=== PATIENT | female | born 2000 | race Caucasian/White ===

== ENCOUNTER 2020-06-19 22:36 | Emergency (ER) | payer OTHER, SELFPAY ==
[2020-06-19 22:41] VITALS: BP 128/79; PULSE 103; RESP 17; TEMP 36.1; O2SAT 99
--- NOTE | 2020-06-19 23:52 | ED.PREGNANCY ---
HPI - General Chief complaint: Vaginal Bleeding Stated complaint: vaginal bleed Time Seen by Provider: 06/19/20 23:32 Source: patient Mode of arrival: ambulatory Limitations: no limitations History of Present Illness HPI Narrative: This patient is a 20 year old female approximately 16 weeks GA who presents for evaluation vaginal bleeding. She reports she had an ultrasound performed 2- 3 weeks ago that reports she was 13 weeks with IUP. She come to ER because prior to arrival she saw some blood when she was using the restroom. She also reported mild lower abdominal cramping. She states she used the restroom here and did not see any more bleeding. She denies fever, chills, diarrhea or urinary symptoms. She does reports nausea and vomiting from morning sickness. She states she will be receiving her care from [facility] Related Data Allergies Allergy/AdvReac Type Severity Reaction Status Date / Time lavender (Lavandula Allergy Severe Other Verified 03/29/19 15:40 angustifolia) Review of Systems Review of Systems: All systems reviewed & are unremarkable except as noted in HPI and below PMFSH Past Medical History Medical History (Updated 06/20/20 @ 02:15 by Bree Luque MD) Patient denies medical problems Surgical History Surgical History (Updated 06/20/20 @ 02:13 by Bree Luque MD) H/O neck surgery Social History Social History (Updated 06/20/20 @ 02:13 by Bree Luque MD) Smoking status: Never smoker Gender identity (if verbalized by the patient): Female Exam Const: General: no acute distress and alert Orientation/consciousness: patient oriented x3 HENMT: Head: atraumatic Face and sinus: face symmetric Throat: posterior oropharynx normal, tonsils normal and uvula midline Eyes: EOM: EOMs intact bilaterally Chest: Chest palpation & inspection: normal inspection of the chest Resp: Effort & Inspection: normal respiratory effort and no retractions Auscultation: clear to auscultation bilaterally Cardio: Rate: regular rate Rhythm: regular rhythm Heart sounds: no murmurs GI: GI Palp: Yes Soft to palpation, No Tenderness to palpation present (GI), No Guarding due to palpation present (GI) and No Rigid due to palpation Auscultation: normal bowel sounds Skin: General skin exam: normal color Rashes: no rashes Neuro: General: patient oriented x3 and moves all extremities Course Reevaluation(s) Reevaluation #1: I performed a bedside ultrasound that shows good movement and Good heart rate at 158. Date: 06/20/20 Time: 02:14 Vital Signs Vital signs: Vital Signs Temperature 97.0 F L 06/19/20 22:41 Pulse Rate 103 H 06/19/20 22:41 Respiratory Rate 17 06/19/20 22:41 Blood Pressure 128/79 06/19/20 22:41 Pulse Oximetry 99 06/19/20 22:41 Temperature 98.2 F 06/20/20 02:29 Pulse Rate 78 06/20/20 02:29 Respiratory Rate 16 06/20/20 02:29 Blood Pressure 130/86 06/20/20 02:29 Pulse Oximetry 100 06/20/20 02:29 MDM - OB/Uterine Contractions Lab Data Attestation: I reviewed the patient's lab results. Result diagrams: 06/20/20 00:11 Labs: Lab Results 06/20/20 06/20/20 06/20/20 Range/Units 00:10 00:11 01:56 WBC 13.8 H (4.5-10.0) K/mm3 RBC 4.29 (4.2-5.4) M/mm3 Hgb 13.1 (12.0-15.0) g/dL Hct 38.9 (37.0-47.0) % MCV 90.7 (80-100) fl MCH 30.5 (26-34) pg MCHC 33.7 (32-36) g/dl RDW 13.4 (11.5-14.5) % Plt Count 262 (150-375) k/mm3 MPV 10.6 H (7.4-10.4) fl Immature Gran % (Auto) 0.5 (0-0.5) % Neut % (Auto) 73.2 H (45.5-73.1) % Lymph % (Auto) 20.3 (18.3-44.2) % Love % (Auto) 4.7 (2.6-8.5) % Eos % (Auto) 0.9 (0-4.4) % Baso % (Auto) 0.4 (0.2-1.2) % Lymph # (Auto) 2.80 (0.9-3.2) K/mm3 Love # (Auto) 0.7 H (0.1-0.6) K/mm3 Eos # (Auto) 0.1 (0-0.3) K/mm3 Baso # (Auto) 0.1
[2020-06-20 00:28] LABS: Basophils Absolute Auto 0.1 K/mm3 (0.0-0.1); Basophils Percent Auto 0.4 % (0.2-1.2); Eosinophils Absolute Auto 0.1 K/mm3 (0-0.3); Eosinophils Percent Auto 0.9 % (0-4.4); Hematocrit 38.9 % (37.0-47.0); Hemoglobin 13.1 g/dL (12.0-15.0); Immature Granulocyte Absolute 0.07 K/mm3 (0.00-0.031); Immature Granulocyte Percent A 0.5 % (0-0.5); Lymphocytes Percent Auto 20.3 % (18.3-44.2); Mean Corpuscular HGB Conc 33.7 g/dl (32-36); Mean Corpuscular Hemoglobin 30.5 pg (26-34); Mean Corpuscular Volume 90.7 fl (80-100); Mean Platelet Volume 10.6 fl (7.4-10.4); Monocytes Absolute Auto 0.7 K/mm3 (0.1-0.6); Monocytes Percent Auto 4.7 % (2.6-8.5); Neutrophils Absolute Auto 10.1 K/mm3 (1.3-6.7); Neutrophils Percent Auto 73.2 % (45.5-73.1); Platelet Count Result 262 k/mm3 (150-375); Red Blood Count 4.29 M/mm3 (4.2-5.4); Red Cell Distribution Width 13.4 % (11.5-14.5); White Blood Count 13.8 K/mm3 (4.5-10.0)
[2020-06-20 01:06] VITALS: BP 132/70; BP 139/68; BP 144/77; PULSE 78; PULSE 80
[2020-06-20 02:09] LABS: Add Urine Microscopic? YES; Appearance Urine Clear (Clear); Bacteria Urine Trace /hpf; Bilirubin Urine Negative (Negative); Blood Urine 1+ (Negative); Color Urine Straw (Yellow); Glucose Urine UA Negative (Negative); Ketones Urine Negative (Negative); Leukocyte Esterase Ur Negative LEU/UL (Negative); Nitrate Urine Negative (Negative); Protein Urine Negative (Negative); RBC Urine 0-2 /hpf (0-2); Specific Grav Ur 1.006 (1.001-1.035); Squamous Epithelial Cell Urine Few /hpf (Few); Urobilinogen Urine Negative mg/dL (<2.0); WBC Urine 0-3 /hpf
[2020-06-20 02:29] VITALS: BP 130/86; PULSE 78; RESP 16; TEMP 36.8; O2SAT 100
== END 2020-06-20 02:30 | disposition home or self-care (01) ==
PROVIDERS: Emergency Provider General Practice
DX: O20.9 Hemorrhage in early pregnancy, unspecified (principal); Z3A.16 16 weeks gestation of pregnancy
CPT/HCPCS: 36415; 81001; 85025; 85461; 99284

== ENCOUNTER 2020-07-02 10:54 | Observation (INO) | payer OTHER, SELFPAY ==
[2020-07-02 11:14] VITALS: BP 138/84; PULSE 94
[2020-07-02 11:16] VITALS: BP 136/77; PULSE 105
[2020-07-02 11:17] VITALS: BP 136/76; PULSE 109
--- NOTE | 2020-07-02 11:20 | OBADM ---
This patient, Mao Limon, admitted to the OB room OB Post 113 for observation. Patient/family oriented to hospital policies and general routines including ID bracelet, bed and alarms, visiting hours, pain management, procedures, bathroom and other care routines, personal items, smoking policy, room service/diet, and visiting hours. Patient/Family are encouraged to report perceived risks to care and to ask questions if they do not understand what they are told or what they should do.
[2020-07-02 11:30] VITALS: BP 109/80; PULSE 84
[2020-07-02 11:45] VITALS: BP 112/59; PULSE 76
[2020-07-02 12:03] VITALS: BMI 19.6
--- NOTE | 2020-07-02 12:41 | PM.OBTRLD ---
OB - Triage/Final Diagnosis Evaluation Vital signs: Vital Signs - 24 hr 07/02/20 11:14 07/02/20 11:16 07/02/20 11:17 Pulse Rate 94 105 H 109 H Blood Pressure 138/84 136/77 136/76 07/02/20 11:30 07/02/20 11:45 Pulse Rate 84 76 Blood Pressure 109/80 112/59 L Final Diagnosis (1) Fainting: Code(s): R55 - Syncope and collapse Status: Acute Plan: Pt fainted; hit face/belly. FHT's were normal. Small abrasion on face; no bruising or tenderness. Orthostatics negative. BS 110. Pt encouraged to eat more frequent meals; stay hydrated.
[2020-07-02 13:34] LABS: Glucose Point of Care 112 (65-105)
== END 2020-07-02 11:51 | disposition home or self-care (01) ==
PROVIDERS: Obstetrics & Gynecology; Admitting Provider Obstetrics & Gynecology; Visit Provider Obstetrics & Gynecology
DX: O26.892 Other specified pregnancy related conditions, second trimester (principal); R55 Syncope and collapse; S00.81XA Abrasion of other part of head, initial encounter; W19.XXXA Unspecified fall, initial encounter; Z3A.18 18 weeks gestation of pregnancy
CPT/HCPCS: G0378; G0379

== ENCOUNTER 2020-11-21 06:14 | Inpatient (IN) | payer OTHER, SELFPAY ==
[2020-11-21] VITALS (15 sets, daily range): BP systolic 108–136; BP diastolic 57–89; PULSE 54–82; RESP 14–17; TEMP 36.2–36.7; O2SAT 98–99; BMI 23.5
[2020-11-21 06:48] LABS: Hematocrit 35.4 % (37.0-47.0); Hemoglobin 11.5 g/dL (12.0-15.0); Mean Corpuscular HGB Conc 32.5 g/dl (32-36); Mean Corpuscular Hemoglobin 26.6 pg (26-34); Mean Corpuscular Volume 81.8 fl (80-100); Mean Platelet Volume 10.6 fl (7.4-10.4); Platelet Count Result 338 k/mm3 (150-375); Red Blood Count 4.33 M/mm3 (4.2-5.4)
[2020-11-21 07:00] LABS: Lymphocytes Absolute Manual 5.51 K/mm3 (1.1-4.5); Monocytes Absolute Manual 0.38 K/mm3 (0.1-0.90); Monocytes Percent Manual 2 % (3-9); Neutrophils Percent Manual 69 % (46-73); Total Cells Counted 100
[2020-11-21 07:01] LABS: Anisocytosis 1+ (NORMAL); Platelet Estimate Adequate (Adequate)
--- NOTE | 2020-11-21 07:13 | WPDHPUPDATE1 ---
History and Physical Update Update Date/Time: 11/21/20 07:13 History and Physical has been reviewed, including an updated exam of the patient. There are NO changes in the patient's condition. Risks, benefits, and alternatives have been discussed and questions answered. Patient agrees to proceed with procedure.
--- NOTE | 2020-11-21 07:14 | WPDOBADMIT ---
Obstetrics - Admit Note Admission Note: record reviewed. No pertinent additions to the history and/or any subsequent changes in the physical findings that are not consistent with the expected course of the were found. Additions to the history and/or subsequent changes in the physical findings follow. None.
--- NOTE | 2020-11-21 07:14 | PM.OBPRVD ---
OB - Delivery Note Procedure Route of delivery: Episiotomy description: None Laceration Description: None Specimen: No Quantitative Blood Loss (ml): 100 Anesthesia type: None Disposition: floor Narrative: Patient prepped in usual manner for this procedure. Maternal expulsive efforts readily delivered vertex and the rest of baby delivered shortly. Cord clamped and cut and the placenta delivered spontaneously. Cervix vagina vulva were inspected with no significant lacerations tears and bleeding was well controlled. At this piont procedure was considered terminated immediate postoperative condition mother baby were both excellent. Baby Weeks of gestation at delivery: 38 Weight (pounds): 6 Weight (ounces): 9 score one minute: 8 score five minutes: 9
--- NOTE | 2020-11-21 07:27 | LDADM ---
This patient, Mao Limon, was admitted to Labor/Delivery/Recovery 106 on 11/21/20 at 06:14. Plans for labor, pain management and were discussed with patient. Patient/family oriented to hospital policies and general routines including ID bracelet, bed and alarms, visiting hours, pain management, procedures, bathroom and other care routines, personal items, smoking policy, room service/diet and guest tray routines, security routines, and visiting hours. Patient/Family are encouraged to report perceived risks to care and to ask questions if they do not understand what they are told or what they should do. See OBIX for further documentation.
[2020-11-21] MEDS: LACTATED RINGERS 1,000 ML 125 ML IV CONT (07:40)
[2020-11-21] MEDS: OXYTOCIN 30 UNITS/NS 500 ML 30 UNITS/500 ML BAG 999 UNITS IV CONT (07:41)
[2020-11-21] MEDS: DOCUSATE SODIUM 100 MG CAPSULE PO (10:53)
[2020-11-21] MEDS: MULTIVIT/MIN/PREN/FOL AC/IRON TABLET 1 TAB PO (10:53)
[2020-11-21] MEDS: IBUPROFEN 600 MG TABLET PO ×3 (10:54→22:33)
--- NOTE | 2020-11-21 12:30 | PC.NURSE ---
Consult with pt., mother states she wishes to pump and bottle feed. Mother had issues with latch and milk supply with first child. Breast pump provided due to mother's wishes. Instructions given on breast pump care and usage, pumping schedule, nipple care, and collection and storage of breast milk. Encouraged [id number], breast massage and manual expression to stimulate supply. Discussed mother may not obtain more than a few drops milk should slowly increase within a few days. Assessed patient for correct flange size, placement and draw. Patient verbalizes and demonstrates understanding of instructions.
--- NOTE | 2020-11-21 15:57 | PC.NURSE ---
1015 Pt admitted to room 281 per wheelchair from labor and delivery after spontaneous vaginal delivery of viable male infant today at [address] Steward. Mother is a and is choosing to bottle feed infant. She states she is going to start pumping at home; nurse encouraged her to start pumping today to start to stimulate her milk production; she will think about it, talk to FOB, and possibly start pumping later this afternoon. LC notified. FOB present; couple oriented to room, staffing and procedures. Admission folder reviewed including Mother-Baby Guide. Pt's VSS and assessment WNL.
[2020-11-22 04:35] VITALS: BP 123/59; PULSE 73; RESP 13; TEMP 35.9; O2SAT 100
[2020-11-22] MEDS: IBUPROFEN 600 MG TABLET PO ×2 (04:38→10:19)
[2020-11-22 05:51] LABS: Hematocrit 35.2 % (37.0-47.0); Hemoglobin 11.2 g/dL (12.0-15.0)
[2020-11-22 08:50] VITALS: BP 114/63; PULSE 57; RESP 18; TEMP 36.5
[2020-11-22 08:51] LABS: Rapid Plasma Reagin Non-Reactive (NonReactive)
--- NOTE | 2020-11-22 10:00 | PC.NURSE ---
Consult with pt., mother reports she continues to pump without difficulties or discomfort. Mother states she has not pumped regularly as suggested, she is tired and feels she will pump more when rested. Discussed stimulation and supply. Reviewed breast pump care and usage, pumping schedule, nipple care, and collection and storage of breast milk. Encouraged jhwg-[id number], breast massage and manual expression to stimulate supply. Mother reports pumping small drops last pumping session. Encouraged regular pumping to increase supply. Mother is feeding as required and waking infant to feed if needed. Infant is currently meeting outcomes for weight, output, jaundice and feeding frequencies. Mother states she feels confident to continue current feeding plan of pump and bottle feeding at home. Reviewed transition to breast milk, signs of adequate intake, and engorgement/relief. Instructed to call ICP if intake/output less than required. Reviewed regular medications mother is taking. Information provided per Bre. Reviewed community resources on the [facility] website and in the Mom/Baby guide. Information on outpatient services provided. Mother has no further questions at this time.
[2020-11-22] MEDS: MULTIVIT/MIN/PREN/FOL AC/IRON TABLET 1 TAB PO (10:19)
[2020-11-23 07:54] VITALS: BP 131/76; PULSE 66; RESP 16; TEMP 36.8; O2SAT 99
--- NOTE | 2020-11-24 06:42 | P.DS_ITS ---
DS: Admitting Diagnosis Admitting Diagnosis Admitting Diagnosis: pergnancy OB - DS: Summary OB Procedures : None OB Procedures Intrapartum: Spontaneous Vag Delivery OB Procedures: : None Time Spent with Patient Time attestation: Total time spent providing and/or coordinating discharge services: Discharge Plan Discharge Attending physician on discharge: Breanna Jane Discharging Clinician: Breanna Jane Anticipated Discharge Date/Time: 11/22/20 17:00 Patient Disposition: Home, Self-Care Activity: pelvic rest Diet: as tolerated and regular Discharge Instructions: Education: Mom and Baby Guide Given to: Mother Follow-Up: Call your delivering provider's office for an appointment to be seen in: 4 Weeks Mom and baby should come to the [facility] for the follow-up appointment. Appointment Date/Time: November 23, 2020 at 8:00 am What to expect at your follow-up visit: Physical Assessment Call [phone] if you are unable to keep your appointment time. BREAST CARE: * Wear a snug supportive bra. * For engorgement discomfort: Breast Feeding: * Apply warm moist washcloths * Express milk as needed to relieve engorgement * Wear loose clothing * For sore nipples: * Identify correct latch-on * Apply warm moist washcloths before and after nursing * Air dry nipples after nursing * May apply Lansinoh cream to nipples PERINEAL CARE: * Until bleeding stops, use your felicia bottle after urinating * Change your pad frequently throughout the day * You may take sitz baths several times a day (fill your bathtub with warm water and soak for 20 minutes.) Do NOT bathe in the water * No tub baths until seen by your physician - You may shower ACTIVITY: * Rest as much as possible. * Do not exercise or lift anything heavier than your baby (such as laundry or other children.) * Avoid stairs or driving as much as possible. * Do not put anything into the vagina. No douching, tampons, or sexual activity until seen by physician. NOTIFY PHYSICIAN IF YOU HAVE ANY QUESTIONS OR IF ANY OF THE FOLLOWING SYMPTOMS OCCUR: * If your perineum becomes red, swollen, or more painful than what you have experienced in the hospital. * If your vaginal bleeding becomes foul smelling. * If your vaginal bleeding becomes more heavy than a period or if your bleeding changes from pink to bright red. However, you may pass an occasional walnut- sized clot once or twice for the first week . * If you experience a sharp, shooting pain in you calves. * If you discover a hard, reddened area on your breast or if you experience flu- like symptoms. DIET: * Eat regular, well-balanced meals. * Drink plenty of fluids daily. If , drink to thirst. Patient Instructions: Antibiotic Form Stand Alone Forms: General Discharge Information Follow-up/Referrals: Darren Steward MD [Physician] - 4 Weeks Breanna Jane MD [Physician] - Discharge Medications: New acetaminophen [Mapap (acetaminophen)] 325 mg Tablet 650 mg PO Q6H PRN (Reason: Mild Pain (1-3) Or Headache) 10 Days Qty: 60 RF: 0 ibuprofen 600 mg Tablet 600 mg PO Q6H PRN (Reason: Cramping) 10 Days Qty: 40 RF: 0 Date of admission: 11/21/20 06:14 Primary Care Provider: PHYSICIAN,PLANT CYTOLOGIST Admitting Provider: Breanna Jane Attending physician on admission: Breanna Jane Condition: Stable
== END 2020-11-22 14:52 | disposition home or self-care (01) | DRG 560 ==
LOC: ANHLDR 06:23 → ANHOB2 10:25
PROVIDERS: Obstetrics & Gynecology; Admitting Provider Obstetrics & Gynecology; Visit Provider Obstetrics & Gynecology
DX: O80 Encounter for full-term uncomplicated delivery (principal); Z3A.38 38 weeks gestation of pregnancy; Z37.0 Single live birth
CPT/HCPCS: 36415; 85014; 85018; 85025; 86592; 86850; 86900; 86901; A9270; J2590; J7120

== ENCOUNTER 2024-02-19 00:34 | Day surgery (SDC) | payer OTHER, SELFPAY ==
[2024-02-16 14:23] VITALS: BMI 17.9
--- NOTE | 2024-02-16 14:24 | PC.NURSE ---
Report to the Outpatient Waiting Room, entrance under the green pavilion located off [facility], at time _0600_ on date _[id number]_. Planned Procedure Time: _0730_. Time changes happen often and if your time is changed the preop area will call you the afternoon before. - You and your visitor will be asked to self-screen and do not enter if you have any COVID symptoms. - A mask is optional within the hospital at this time. Patients may have clear liquids (water, carbonated beverages, clear teas, apple juice) until 3 hours prior to surgery with a maximum of 20 ounces. - No food from midnight until time of surgery Take the following medications with a SIP of water the morning of surgery: ____None DO NOT STOP ANY OF YOUR OTHER PRESCRIPTION MEDICATIONS PRIOR TO SURGERY ?EXCEPT THE FOLLOWING Medications to discontinue per physician None Date to take last dose Please no make-up, nail turkish, hairspray, perfume, deodorant, or body powder the day of surgery. No jewelry (including any body piercings) or valuables the day of surgery, leave them at home. Please take a shower or bath the night before, or the morning of, surgery with an antibacterial soap. Wear comfortable, loose fitting clothing. - Jewelry must be removed prior to entering the operating room. Rings and piercings that are not removed may be cut off. - The hospital will not accept responsibility for valuables. - Please leave all valuables, including medications, at home the day of surgery. If you are going home after surgery, a licensed rear load truck driver must drive you home. - NO public transportation without another adult if you receive anesthesia. - We recommend that an adult stay with you for 24 hours following discharge. - We also recommend that you do not drive, make important decision, drink alcoholic beverages, or take any drugs that were not prescribed by your health care provider for at least 24 hours after your discharge time. Follow any additional instructions given to you from your surgeon. If you or anyone in your household have experienced Covid symptoms in the past week, please notify your surgeon or the nurse liaison at the phone number below for possible testing. Telephone instructions given to __[email or web address]___and asked if any additional questions and then verbalized understanding. Patient advised to call surgeon office or pre surgery nurse liaison [phone] if any additional questions.
[2024-02-19 06:45] VITALS: BP 111/69; PULSE 84; RESP 14; TEMP 36.6; O2SAT 99
[2024-02-19] MEDS: LACTATED RINGERS 1,000 ML 30 ML IV CONT (06:45)
[2024-02-19] MEDS: ACETAMINOPHEN 500 MG TABLET 1000 MG PO (06:45)
--- NOTE | 2024-02-19 07:11 | P.PNAN_ITS ---
Anes - Initial Pre Proc Eval Procedure: Operation Date: 02/19/24 07:30 Proposed Procedures p Suction Dilation and Curettage - Leighton Delgado MD Date/Time: 02/19/24 07:11 Surgeon: Leighton Delgado MD Pre Op Diagnosis: missed ab Patient Data Age: 24 Gender: F Height: 1.7 m Weight: 51.95 kg Last Vital Signs Temp 97.9 F 02/19/24 06:45 Pulse 84 02/19/24 06:45 Resp 14 02/19/24 06:45 BP 111/69 02/19/24 06:45 Pulse Ox 99 02/19/24 06:45 O2 Del Method Room Air 02/19/24 06:45 Allergies Allergy/AdvReac Type Severity Reaction Status Date / Time lavender (Lavandula Allergy Severe Other Verified 02/19/24 06:49 angustifolia) Home Medications Medication Instructions Recorded Confirmed Type No Home Medications 02/16/24 02/16/24 History Patient hx anesthesia problems: none Family hx anesthesia problems: none Results Review: All pre-operative results and documents have been reviewed as part of the pre- operative evaluation. COUNTS INCLUDE 234 BEDS AT THE [facility] Past Medical History Medical History (Updated 07/02/20 @ 12:42 by Breanna Jane MD) Patient denies medical problems Surgical History Surgical History (Updated 06/20/20 @ 02:13 by Bree Luque MD) H/O neck surgery Social History Social History (Updated 06/20/20 @ 02:13 by Bree Luque MD) Smoking status: Former smoker Tobacco type: cigarettes and e-cigarettes/vaping Alcohol intake: current Substance use: never Substance use type: marijuana Other substance usage details: Daily Living arrangements: with family Gender identity (if verbalized by the patient): Female Spiritual care concerns: No Anes - Eval Final PreProcedure Day of Procedure 02/19/24 07:11 Patient weight: normal Heart: regular rate and rhythm Lungs: clear to auscultation Airway: Mallampati scale class II Neurological: alert and oriented Last oral intake: >/= 8 hours ASA classification: II Emergent: no Anesthetic plan: proceed Anesthesia type and monitoring: general GIVS and standard monitoring Results Review: All pre-operative results and documents have been reviewed as part of the pre- operative evaluation. Informed Consent: The patient's anesthetic plan and its attendant risks and benefits were discussed with the patient/family/POA. Questions were solicited and answers provided to the satisfaction of the patient/family/POA.
--- NOTE | 2024-02-19 07:47 | WPDHPUPDATE1 ---
History and Physical Update Update Date/Time: 02/19/24 07:47 History and Physical has been reviewed, including an updated exam of the patient. There are NO changes in the patient's condition. Risks, benefits, and alternatives have been discussed and questions answered. Patient agrees to proceed with procedure.
[2024-02-19] MEDS: LIDOCAINE HCL 1% PF INJ 5 ML VIAL 10 ML INFILTRATE (08:09)
--- NOTE | 2024-02-19 08:25 | W.PM.PROC2 ---
Procedure Note - Detailed Date of Procedure 02/19/24 Pre-op Diagnosis retained products conception Post-op Diagnosis Same Procedure Performed Suction D&C Surgeon Leighton Delgado MD Anesthesia MAC Indications missed Findings normal-appearing vulva vagina and cervix to. Small amount of products conception within the uterus. 8 cm uterus Description of Procedure the patient was taken the operating room. She was prepped and draped in dorsal lithotomy position after induction of mac anesthesia. A speculum was placed in the vagina. Cervix grasped with tenaculum. The cervix was dilated to about 1 cm Using Lovell dilators. A 8. [place] curved curette was used to perform suction D&C. The curette was introduced and vacuum was applied. The curette was removed over all surfaces of the intrauterine cavity multiple times. This was done until all the surfaces were clear and had the familiar grainy texture they can be felt through the instrument. A sharp curette was then used to curettage all the surfaces. The suction cup was then reapplied 1 more time to remove any debris. The instruments were removed. The speculum and tenaculum were removed. The patient tolerated the procedure well. She was taken recovery room stable condition. Estimated Blood Loss 25 Drains No Packing No Pathology Yes Complications No immediate complications Condition Stable Disposition PACU
[2024-02-19 08:26] VITALS: BP 89/51; PULSE 50; RESP 14; O2SAT 97
[2024-02-19 08:55] VITALS: BP 116/92; PULSE 60; RESP 16
[2024-02-19 09:15] VITALS: BP 110/64; PULSE 45; RESP 16
== END 2024-02-19 09:30 | disposition home or self-care (01) ==
PROVIDERS: Visit Provider Obstetrics & Gynecology
PROC: (CPT 59820; principal; 2024-02-19 07:30)
DX: O02.1 Missed abortion (principal); F12.90 Cannabis use, unspecified, uncomplicated
CPT/HCPCS: 59820; 36415; 85461; 86850; 86900; 86901; 88305; A9270; J1100; J2250; J2704; J3010; J7120

== ENCOUNTER 2024-10-30 17:54 | Observation (INO) | payer OTHER, SELFPAY ==
--- OUTSIDE RECORDS SUMMARY | 2024-10-30 18:00 | XMS_ITS | Data Portability ---
Author Organization [facility] [place] Address [address] [place] [address] [place] [address] Assessment Encounter Date Assessment Date Assessment LastModified by Organization Details LastModified Time 09/14/2024 09/14/2024 Patient is ___weeks . Discussed plan. Not available 09/14/2024 14:32:35 10/04/2024 10/04/2024 Patient is ___weeks . Discussed plan. Not available 10/04/2024 11:38:40 Plan of Treatment Reminders Order Date Submit Date Provider Last Modified By Organization Details Last Modified Time Details Appointments OB ROUTINE 2024 11:30A Miguel DELGADO MD Not available Not available Not available Lab None recorded. Referral None recorded. Procedures None recorded. Surgeries None recorded. Imaging US, obstetric , follow-up 2024 [email or web address] [place], [address], [place], [address], 10/18/2024 22:06:14 US, obstetric , follow-up [email or web address], [address], [place], [address], 09/14/2024 20:09:28 Medication Orders pantopraz ole 40 mg tablet,de layed release 2024 025 [id number], [address], [place], [place], [id number], 10/18/2024 12:39:23 Patient TargetsNo targets recorded. Patient InstructionsNo instructions recorded. Reason for Referral None Reported. Results Created Date Observation Date Name Description Value Unit Range Abnormal Flag Note LastModifiedBy Organization Detail LastModifiedTime 10/04/1910/04/2024 HEMAT OCRIT (HCT) HCT 33.3 % (based on docume nted legal sex) 34.0-4 5.0 low Not Available [facility] (Lab) [address] [place], [address], 10/05/2024 19:11:29 10/04/19 25 10/04/2024 HEMOG LOBIN (HGB) HGB 10.4 g/dL (based on docume nted legal sex) 11.6-1 5.4 low Not Available [facility] (Lab) [address] [place], [address], 10/05/2024 19:11:29 10/04/19 25 10/04/2024 HIV 1/2 ANTIG EN/AN TIBOD Y, REFLE X CONFI RMATI ON HIV antigen/anti body Nonrea ctive nonrea ctive HIV-1 antig en and HIV-1 /HIV- 2 antib odies were not detec marylin. No labor atory evide nce of HIV infec tion. Not Available [facility] (Lab) [address] [place], [address], 10/05/2024 19:11:29 10/04/19 25 10/04/2024 GTT - GESTA PAULETTE L SCREE N, ACOG OB glucose, 1 hour screen 97 mg/dL 70-135 Not Available [facility] (Lab) [address] [place], [address], 10/05/2024 19:11:30 10/04/19 25 10/04/2024 RPR SCREE N, REFLE X TITER /CONF IRMAT ION RPR qualitative Nonrea ctive nonrea ctive Not Available [facility] (Lab) [address] [place], [address], 10/05/2024 19:11:30 08/16/19 25 08/16/2024 US, obste tric, 2nd or 3rd trime ster No observ ation record ed. [email or web address] [place] [address], [place], [address], 08/16/2024 13:17:52 08/16/19 25 08/16/2024 US, obste tric, 2nd or 3rd trime ster No observ ation record ed. [email or web address] [address], [place], [address], 08/16/2024 14:05:32 09/14/19 25 09/14/2024 US, obste tric, follo w-up No observ ation record ed. [email or web address] [place] [address], [place], [address], 09/14/2024 18:19:57 09/14/19 25 09/14/2024 US, obste tric, follo w-up No observ ation record ed. [email or web address] [address], [place], [address], 09/14/2024 21:32:17 10/19/19 25 10/18/2024 US, obste tric, follo w-up No observ ation record ed. LAURITA [address], [place], [address], 10/20/2024 08:12:29 10/19/19 25 10/18/2024 US, obste tric, follo w-up No observ ation record ed. [email or web address] [place] [address], [place], [address], 10/18/2024 12:41:12 Result Notes None recorded. Problems Name Problem SNOMED Code Status Onset Date Resolution Date Notes Provider Name and Address Organization Details Recorded Time Abscess of vulva 58968194 Active 2015 Furuncle of vulva;Rec orded Elsewhere : No Locati on: [facility] So urce: EHR Chron ic: N Practic e ID: [id number] Bill able Time: 09:00:00 AM Not Available [facility] 0 17:41:31 Depressiv e disorder 10887323 Active 2018 Depressio n;Recorde d Elsewhere : No Locati on: [facility] So urce: EHR Chron ic: N Practic e ID: [id number] Bill able Time: 01:45:00 PM Not Available [facility] 0 17:41:31 Chlamydia l infection 158690271 Active 2015 Chlamydia l infection , unspecifi ed;Record ed Elsewhere : No Locati on: [facility] So urce: EHR Chron ic: N Practic e ID: [id number] Bill able Time: 10:00:00 AM Not Available [facility] 0 17:41:32 97221168 Active 2023 Alanna Alvarado [facility], [facility] 4 18:06:16 Female steriliza tion Active Consideri ng PP tubal, discussed at 16 week visit, will need papers signed at 32 week visit NEEDS TUBAL CONSENT Leighton Delgado MD [address], [place], [address], [facility] 5 14:47:49 Acid reflux 118800590 Active Rxed - protonix Leighton Delgado MD [address], [place], [address], [facility] 5 12:42:54 Problem Notes None recorded. Procedures Surgical History Date Name Laterality Status Provider Name and Address Organization Details Recorded Time 4 Date of Last Pap Smear completed Alanna Alvarado [facility] 06/15/2024 18:04:43 4 DILATION & CURETTAGE (SURG) completed Arpan Luevano [facility] 02/19/2024 09:31:14 Imaging Results Imaging Date Name Status [facility]Modified by [facility] Details LastModified Time 08/16/2024 US, obstetric, 2nd or 3rd trimester completed [email or web address] [place] [address], [place], [address], 08/16/2024 13:17:52 08/16/2024 US, obstetric, 2nd or 3rd trimester completed [email or web address] [address], [place], [address], 08/16/2024 14:05:32 09/14/2024 US, obstetric, follow-up completed [email or web address] [place] [address], [place], [address], 09/14/2024 18:19:57 09/14/2024 US, obstetric, follow-up completed [email or web address] [address], [place], [address], 09/14/2024 21:32:17 10/18/2024 US, obstetric, follow-up active LAURITA [address], [place], [address], 10/20/2024 08:12:29 10/18/2024 US, obstetric, follow-up completed [email or web address] [place] [address], [place], [address], 10/18/2024 12:41:12 Procedure Notes None recorded. Medical Equipment None Reported. Allergies No known drug allergies Medications Name Sig Start Date Stop Date Status Note LastModified by Organization Details LastModified Time cyclobenz aprine 10 mg tablet take 1 tablet by oral route 2 times every day 02/14 completed Prescrib shannan Guzman e: No Locat ion: Vandana panda [facility] odify By: shaq min DateTime : 08/05/20 01:45:00 PM Not Available Not Available Not Available amoxicill in 500 mg capsule TAKE 1 CAPSULE BY MOUTH THREE TIMES DAILY 02/14 completed Not Available Not Available Not Available acetamino phen 300 mg-codein e 30 mg tablet TAKE 1 TABLET BY MOUTH EVERY 6 HOURS NEEDED FOR PAIN 02/14 completed Not Available Not Available Not Available pantopraz ole 40 mg tablet,de layed release Take 1 tablet every day by oral route. 2024 active Not Available Not Available Not Avai lable Bactrim DS 800 mg-160 mg tablet take 1 tablet by oral route every 12 hours 07/14 completed Prescrib ed Elsewher e: No Locat ion: [facility] odify By: brien shipley DateTime : 04/23/20 16 10:00:00 AM Not Available Not Available Not Available Zithromax 500 mg tablet take 2 Tablet by oral route at one time 05/01 completed Prescrib ed Elsewher e: No Locat ion: [facility] odify By: doug sanchez DateTime : 04/30/20 16 02:40:09 PM Not Available Not Available Not Available Tums active Not Available Not Availa ble Not Available + DHA active Not Available Not Available Not Available Vitals Date Recorded Body weight Systolic blood pressure Diastolic blood pressure Provider Name and Address Organization Details Last Updated DateTime 09/14/2024 40560.9699 5 g 122 mm[Hg] 78 mm[Hg] Alanna [facility] 09/14/2024 14:34:14 Date Recorded Body height Body mass index (BMI) Body weight Systolic blood pressure Diastolic blood pressure Provider Name and Address Organization Details Last Updated DateTime 10/04/2024 167.64 cm 31.6 kg/m2 98084.10 452 g 118 mm[Hg] 78 mm[Hg] Alanna [facility] 11:39:19 Date Recorded Body height Body mass index (BMI) Body weight Systolic blood pressure Diastolic blood pressure Provider Name and Address Organization Details Last Updated DateTime 10/18/2024 167.64 cm 22 kg/m2 17924.56 g 107 mm[Hg] 73 mm[Hg] CALLY Gonzalez [facility] 12:30:20 Social History Question Answer Notes LastModified by Organizat ion Details LastModified Time Tobacco Smoking Status Never Smoker Alanna Christiano [facility] 2024 17:39:29 What Is Your Level Of Alcohol Consumption? None Information not available 2024 Are You Blind Or Do You Have Difficulty Seeing? No Information n ot available 2024 In The 14 Days Before Symptom Onset, Have You Had Close Contact With A Laboratory-confirm ed COVID-19 While That Case Was Ill? No Information n ot available 2024 In The 14 Days Before Symptom Onset, Have You Had Close Contact With A Person Who Is Under Investigation For COVID-19 While That Person Was Ill? No Information not available 2024 Have You Been To An Area Known To Be High Risk For COVID-19? No Information not available 2024 Are You Deaf Or Do You Have Serious Difficulty Hearing? No Information not available 2024 Are There Any Guns Present In Your Home? No Information not available 2024 Are You Sexually Active? Yes Information not available 2024 Do You Have Smoke And Carbon Monoxide Detectors In Your Home? Yes Information not available 2024 Do You Use Any Illicit Or Recreational Drugs? No Information not available 2024 Do You Use Sunscreen Routinely? Yes Information not available 2024 Sex: Unknown Functional Status Question Answer Note LastModified by Organizat ion Details LastModified Time Do you have difficulty walking or climbing stairs? No Information not available 2024 Are you able to walk? YESWOREST Information not available 2024 Are you able to care for yourself? Yes Information not available 2024 Do you have difficulty dressing or bathing? No Information not available 2024 Mental Status None recorded. Family History Nothing Reported Notes:Maternal grandfather: psychiatric disease, Cancer, lung, Congenital heart disease Medical History Condition Response Allergies (Food, seasonal, environmental ) N Other N Drug/Latex Allergies/Reactions N Blood Transfusion N Breast Cancer N Dermatologic Disorders N Lung Disease N Defects or Inherited Disease N Breast Problem N Gestational Diabetes N Hematologic disorders N Anesthesia Complications N History of STI N Deep Vein Thrombosis N Polycystic ovary syndrome N Anxiety Disorder N Autoimmune disease N Arthritis N Polyps N Infertility N Acid Reflux (GERD) N History of abnormal pap N Cancer N Varicosities N Stroke N Neurologic/Epilepsy N Endometriosis N High Cholesterol N Fibromyalgia N Headaches N Kidney Disease N Heart Problems N Thyroid Problems N Kidney or Bladder Problems N GI Problems N Eating Disorder N Anemia N Art (IVF or FET) N Psychiatric Illness N Ovarian Cancer N Diabetes N Pulmonary (TB, Asthma) N Hepatitis/Liver Disease N No Past Medical History Y Eczema N Urinary Tract Infection N Abuse/Domestic Violence N Asthma N Trauma/Violence N Depression/ depression N Heart Disease N Pre-Eclampsia N Hypertension N Osteoporosis N Thrombophilias N Gynecological History Statement/Question Response Flow Moderate Are cycles usually normal Y Date of LMP 03/15/2024 Sexually Active? Y Menses Monthly Y Was last menstrual period normal N STIs/STDs N Date of Last Pap Smear 05/18/2024 Sexual Problems? N Current Control Method LMP Definite Obstetrics History GPAL:G 5 P 2 0 2 2 Type Value Full Term 2 Spontaneous 2 Living 2 Total 5 Past Encounters Encounter ID Performer Location Encounter Start Date Encounter Closed Date Diagnosis/Indication Diagnosis SNOMED-CT Code Diagnosis ICD10 Code Diagnosis Note Hilary White [place] [address] [address] 2024 15:57:11 2024 16:58:53 Missed miscarriage 23986597 O02.1 Z3A.00 [id number] [place] [address] [address] 2024 16:08:46 02/16/2024 10:59:05 Missed miscarriage 97055337 O02.1 Z3A.00 this patient is a 23-year-ol d female with a missed miscarriag e. We have agreed to perform suction D&C. She understand s the procedure, it has been explained in detail.. She understand s the risks, benefits, and alternativ es. She has completed the informed consent process and is ready to proceed. [id number] Leighton Delgado MD [place] [address],[place] [address] 02/18/2024 13:52:16 02/18/2024 15:24:14 Missed miscarriage 44696129 O02.1 Z3A.00 this patient is a 23-year-ol d female with a missed miscarriag e. We have agreed to perform suction D&C. She understand s the procedure, it has been explained in detail.. She understand s the risks, benefits, and alternativ es. She has completed the informed consent process and is ready to proceed. [id number] Leighton Delgado MD [place] [address],[place] [address] 02/25/2024 14:02:53 02/25/2024 15:14:45 Incomplete miscarriage 453847864 O03.4 this patient presents for postop follow-up. She is 1 week postop from a suction D&C. She is recovering normally. Her bleeding is minimal. She has no foul-smell ing vaginal discharge. She denies any nausea, vomiting, fever, chills. We discussed contracept ion. We discussed future . She will follow up for a repeat test. she had incomplete miscarriag e. Decidua was retrieved. She had a negative UPT today. To follow-up for care in the near future. [id number] Leighton Delgado MD [place] [address],[place] [address] 02/25/2024 19:35:29 02/25/2024 19:36:[id number] [facility] [address],[place] [address] 05/09/2024 13:21:43 05/09/2024 14:03:14 Threatened miscarriage 70795517 O20.[id number] [facility] [address],[place] [address] 05/18/2024 11:54:06 05/18/2024 12:21:32 [id number] Leighton Delgado MD [place] [address],[place] [address] 05/18/2024 11:54:25 05/19/2024 09:29:49 screening 027544963 Z36.0 Genetic in vestigation procedure 13980432 Z31.430 Amenorrhea 45753628 N91. 2 this patient is a 24-year-ol d female who presents for amenorrhea . She is a positive test. Ultrasound revealed a 1st trimester gestation. Patient has no complaints . We talked about early care. Talked about genetic screening. We talked about her ultrasound results. We talked about the 12 week ultrasound that has genetic screening components . She was given recommenda tions on exercise, diet, over-the-c ounter medication s. We reviewed her obstetric history. We reviewed her medical history. We reviewed her social history. She will begin routine care at her next visit. [id number] [facility] [address],[place] [address] 06/15/2024 17:32:40 06/16/2024 07:40:11 screening 068326508 Z36.82 Z3A.13 [id number] Leighton Delgado MD [place] [address],[place] [address] 06/15/2024 17:32:52 06/16/2024 12:09:41 Routine care 530917788 Z34.91 [id number] SPENECR ZAVALETA MD [place] [address],[place] [address] 07/18/2024 10:43:41 07/18/2024 12:26:56 Sterilization requested 358791129 Z30.2 - patient considerin g permanent sterilizat ion - discussed risks, benefits, and alternativ es at 17 weeks of bilateral salpingect rachid, including risks of bleeding, infection and injury to surroundin g organs. Also discussed alternativ e contracept alcides options.- tubal papers to be signed at 32 week vist Gestation period, 17 weeks 75209133 Z3A.17 - continue pNV [id number] Hilary White [place] [address],[place] [address] 08/16/2024 11:19:13 08/16/2024 12:48:56 screening for malformation 435358056 Z36.3 Z3A.21 [id number] SPENCER ZAVALETA MD [place] [address],[place] [address] 08/16/2024 11:19:31 08/16/2024 14:10:44 Routine care 884684155 Z34.82 [id number] Hilary White [place] [address],[place] [address] 09/14/2024 13:42:05 09/14/2024 14:34:47 screening 651235375 Z36.2 Z3A.25 [id number] Leighton Delgado MD [place] [address],[place] [address] 09/14/2024 13:42:29 09/14/2024 14:53:23 Routine care 026816548 Z34.91 [id number] Leighton Delgado MD [place] [address],[place] [address] 10/04/2024 11:06:35 10/04/2024 12:13:09 Routine care 857774489 Z34.91 [id number] [facility] [address],[place] [address] 10/18/2024 11:49:01 10/18/2024 12:48:51 Uterine size for dates discrepancy 464206706 O26.849 Z3A.30 Gestation period, 30 weeks 05601366 Z3A.30 [id number] Leighton Delgado MD [place] [address],[place] [address] 10/18/2024 11:49:12 10/18/2024 12:49:38 Gastroesophageal reflux disease 042477394 K21.9 Routine an tenatal care 040102208 Z34.91 Health Concerns Section Related Observation LastModified by Organization Detai ls LastModified Time None Recorded Concern Status LastModified by Organization Details LastModified Time None Recorded Advance Directives Directive None Recorded Payers Encounter Date Sequence Insurance Name Policy Number Policy Welch Covered Member ID Welch Member ID Guarantor Name 09/14/2024 1 [facility] (MEDICAID HMO) [id number] Mao Braxton [id number] Mao Braxton 09/14/2024 1 [facility] (MEDICAID O) [id number] Mao Braxton [id number] Mao Braxton 10/04/2024 1 [facility] (MEDICAID HMO) [id number] Mao Braxton [id number] Mao Braxton 10/18/2024 1 [facility] (MEDICAID HMO) [id number] Mao Braxton [id number] Mao Braxton 10/18/2024 1 [facility] (MEDICAID O) [id number] Mao Braxton [id number] Mao Braxton OBGyn Episode Ob Episode Information Episode Created Date Number of Fetuses Patient Bloodtype Patient rh Status Prepregnancy Weight lbs Domestic Partner Domestic Partner Phone Father Name Branch Office Administrator Status 02/15/20 1 CLOSED Fetus Data First Name Last Name Admitted to NICU Weight (g) Sex Living Outcome Pediatric Complications Fetus ID Race Codes Race Delivery Type , Spontane ous [id number] Joe Calculation Initial Joe Date Initial Exam Date Initial Exam Provider Initial Ultrasound Date Last Menstrual Period Date Ultra Sound Weeks Gestation 0 Eighteen To Twenty Week Joe Update Ultra Sound Date Fundal Height At Umbil Quickening Date Ultra Sound Latest Weeks Gestation Final Joe Confirmed By Final Joe Confirmed Date Final Joe Date Ultra Sound Latest Days Gestation 0 0 Menstrual History Last Menstrual Date Menses Monthly On Bcp Conception Prior Menses Frequency Hcg Plus Date Menarche Onset Age Delivery Information Delivery Date Delivery Type Labor Anesthesia Weeks Gestation Incision Type Labor Labor Length Hrs Delivered By Post Complications Tubal Sterilization Discharge Date Comments 4 Discharge Information Feeding Method Contraceptive Method Maternal HG B and HCT Levels Ob Episode Information Episode Created Date Number of Fetuses Patient Bloodtype Patient rh Status Prepregnancy Weight lbs Domestic Partner Domestic Partner Phone Father Name Branch Office Administrator Status 02/15/20 24 1 CLOSED Fetus Data First Name Last Name Admitted to NICU Weight (g) Sex Living Outcome Pediatric Complications Fetus ID Race Codes Race Delivery Type , Spontane ous [id number] Joe Calculation Initial Joe Date Initial Exam Date Initial Exam Provider Initial Ultrasound Date Last Menstrual Period Date Ultra Sound Weeks Gestation 0 Eighteen To Twenty Week Joe Update Ultra Sound Date Fundal Height At Umbil Quickening Date Ultra Sound Latest Weeks Gestation Final Joe Confirmed By Final Joe Confirmed Date Final Joe Date Ultra Sound Latest Days Gestation 0 0 Menstrual History Last Menstrual Date Menses Monthly On Bcp Conception Prior Menses Frequency Hcg Plus Date Menarche Onset Age Delivery Information Delivery Date Delivery Type Labor Anesthesia Weeks Gestation Incision Type Labor Labor Length Hrs Delivered By Post Complications Tubal Sterilization Discharge Date Comments 8 Discharge Information Feeding Method Contraceptive Method Maternal HG B and HCT Levels Ob Episode Information Episode Created Date Number of Fetuses Patient Bloodtype Patient rh Status Prepregnancy Weight lbs Domestic Partner Domestic Partner Phone Father Name Branch Office Administrator Status 02/15/20 24 1 CLOSED Fetus Data First Name Last Name Admitted to NICU Weight (g) Sex Living Outcome Pediatric Complications Fetus ID Race Codes Race Delivery Type M Full Term [id number] Vaginal Delivery Joe Calculation Initial Joe Date Initial Exam Date Initial Exam Provider Initial Ultrasound Date Last Menstrual Period Date Ultra Sound Weeks Gestation 0 Eighteen To Twenty Week Joe Update Ultra Sound Date Fundal Height At Umbil Quickening Date Ultra Sound Latest Weeks Gestation Final Joe Confirmed By Final Joe Confirmed Date Final Joe Date Ultra Sound Latest Days Gestation 0 0 Menstrual History Last Menstrual Date Menses Monthly On Bcp Conception Prior Menses Frequency Hcg Plus Date Menarche Onset Age Delivery Information Delivery Date Delivery Type Labor Anesthesia Weeks Gestation Incision Type Labor Labor Length Hrs Delivered By Post Complications Tubal Sterilization Discharge Date Comments 1 Discharge Information Feeding Method Contraceptive Method Maternal HG B and HCT Levels Ob Episode Information Episode Created Date Number of Fetuses Patient Bloodtype Patient rh Status Prepregnancy Weight lbs Domestic Partner Domestic Partner Phone Father Name Branch Office Administrator Status 06/15/20 24 1 B Positive Gerald OPEN Fetus Data First Name Last Name Admitted to NICU Weight (g) Sex Living Outcome Pediatric Complications Fetus ID Race Codes Race Delivery Type [id number] Problems Problem Notes Problem Name Start Date End Date Resolution Snomed Code Not e Female sterilization 76505215 Considering PP tubal, discussed at 16 week visit, will need papers signed at 32 week visitNEEDS TUBAL CONSENT Acid reflux 123216816 Rxed - p rotonix Joe Calculation Initial Joe Date Initial Exam Date Initial Exam Provider Initial Ultrasound Date Last Menstrual Period Date Ultra Sound Weeks Gestation 06/15/2024 05/18/2024 03/15/2024 8 Eighteen To Twenty Week Joe Update Ultra Sound Date Fundal Height At Umbil Quickening Date Ultra Sound Latest Weeks Gestation Final Joe Confirmed By Final Joe Confirmed Date Final Joe Date Ultra Sound Latest Days Gestation 0 [email or web address] 06/15/2024 12/25/19 25 0 Pre-lloyd Flowsheet Flowsheet Date 06/15/2024 Martinez Score Blood Edema Fundus Height Fundus Units Glucose Ketones Leukocytes Nitrite Labor Signs Protein Cervic Dilation Cervic Effacement Cervic Station Type Weight in lbs Pre/Post Dialysis Refused Weight 118.943853420590 BP Diastolic BP Location Tested BP Systolic BP Type 74 L arm 114 sitting Fetus Heart Rate Present A 145 Fetus Movement A No Comments this patient is a -year-old multiparous female at 12 weeks' gestation who presents for initial care. She has a history of term vaginal births. Her medical, surgical, obstetric history is unremarkable. She is vaccinated. She was given precautions recommendations for . We talked about vaccines in . Talked about care in detail. She is having genetic testing. She had a normal 12 week ultrasound. To begin routine care. Flowsheet Date 07/18/2024 Martinez Score Blood Edema Fundus Height Fundus Units Glucose Ketones Leukocytes Nitrite Labor Signs Protein Cervic Dilation Cervic Effacement Cervic Station neg none Type Weight in lbs Pre/Post Dialysis Refused 124.667061758470 BP Diastolic BP Location Tested BP Systolic BP Type 67 L arm 105 sitting Fetus Heart Rate Present A 140 Fetus Movement A Yes Comments Nausea improving. Good movement. No cramping or bleeding. Fatigue improved. Considering tubal ligation post delivery. Discussed permanence of procedure with risks and benefits. Will discuss further; needs papers signed at 32 weeks. Discussed anatomy US for next visit. New OB labs wnl, LR female NIPT! RTC 4 weeks. Flowsheet Date 08/16/2024 Martinez Score Blood Edema Fundus Height Fundus Units Glucose Ketones Leukocytes Nitrite Labor Signs Protein Cervic Dilation Cervic Effacement Cervic Station Type Weight in lbs Pre/Post Dialysis Refused BP Diastolic BP Location Tested BP Systolic BP Type Fetus Heart Rate Present Fetus Movement Comments Flowsheet Date 08/16/2024 Martinez Score Blood Edema Fundus Height Fundus Units Glucose Ketones Leukocytes Nitrite Labor Signs Protein Cervic Dilation Cervic Effacement Cervic Station neg none Type Weight in lbs Pre/Post Dialysis Refused 130.866875106312 BP Diastolic BP Location Tested BP Systolic BP Type 71 L arm 108 sitting Fetus Heart Rate Present A Present Fetus Movement A Yes Comments Doing well, good movem ent. No cramping or bleeding. Anatomy today, overall normal aside from DA and profile not visualized. Will repeat in 4 weeks. EFW 54%. RTC 4 weeks. Flowsheet Date 09/14/2024 Martinez Score Blood Edema Fundus Height Fundus Units Glucose Ketones Leukocytes Nitrite Labor Signs Protein Cervic Dilation Cervic Effacement Cervic Station Type Weight in lbs Pre/Post Dialysis Refused BP Diastolic BP Location Tested BP Systolic BP Type Fetus Heart Rate Present Fetus Movement Comments Flowsheet Date 09/14/2024 Martinez Score Blood Edema Fundus Height Fundus Units Glucose Ketones Leukocytes Nitrite Labor Signs Protein Cervic Dilation Cervic Effacement Cervic Station Type Weight in lbs Pre/Post Dialysis Refused 135.34908786988 BP Diastolic BP Location Tested BP Systolic BP Type 78 L arm 122 sitting Fetus Heart Rate Present A 134 Fetus Movement A Yes Comments no complaints, no problems, routine care, no contractions, no vaginal bleeding, no loss of fluid, no cramping Flowsheet Date 10/04/2024 Martinez Score Blood Edema Fundus Height Fundus Units Glucose Ketones Leukocytes Nitrite Labor Signs Protein Cervic Dilation Cervic Effacement Cervic Station 25 cm Type Weight in lbs Pre/Post Dialysis Refused 196.871464822073 BP Diastolic BP Location Tested BP Systolic BP Type 78 L arm 118 sitting Fetus Heart Rate Present A 140 Present Fetus Movement A Yes Comments no complaints, no problems, routine care, no contractions, no vaginal bleeding, no loss of fluid, no cramping Size smaller than dates Flowsheet Date 10/18/2024 Martinez Score Blood Edema Fundus Height Fundus Units Glucose Ketones Leukocytes Nitrite Labor Signs Protein Cervic Dilation Cervic Effacement Cervic Station Type Weight in lbs Pre/Post Dialysis Refused BP Diastolic BP Location Tested BP Systolic BP Type Fetus Heart Rate Present Fetus Movement Comments Flowsheet Date 10/18/2024 Martinez Score Blood Edema Fundus Height Fundus Units Glucose Ketones Leukocytes Nitrite Labor Signs Protein Cervic Dilation Cervic Effacement Cervic Station neg none 29 cm Type Weight in lbs Pre/Post Dialysis Refused Weight 136.279155996418 BP Diastolic BP Location Tested BP Systolic BP Type 73 L arm 107 sitting Fetus Heart Rate Present A 145 Fetus Movement A Yes Comments pt complains of acid reflux and nausea - TREATED WITH PROTONIX Menstrual History Last Menstrual Date Menses Monthly On Bcp Conception Prior Menses Frequency Hcg Plus Date Menarche Onset Age 0803/15/2024 true Delivery Information Delivery Date Delivery Type Labor Anesthesia Weeks Gestation Incision Type Labor Labor Length Hrs Delivered By Post Complications Tubal Sterilization Discharge Date Comments Discharge Information Feeding Method Contraceptive Method Maternal HG B and HCT Levels Ob Episode Information Episode Created Date Number of Fetuses Patient Bloodtype Patient rh Status Prepregnancy Weight lbs Domestic Partner Domestic Partner Phone Father Name Branch Office Administrator Status 02/15/20 24 1 CLOSED Fetus Data First Name Last Name Admitted to NICU Weight (g) Sex Living Outcome Pediatric Complications Fetus ID Race Codes Race Delivery Type Full Term [id number] Vaginal Delivery Joe Calculation Initial Joe Date Initial Exam Date Initial Exam Provider Initial Ultrasound Date Last Menstrual Period Date Ultra Sound Weeks Gestation 0 Eighteen To Twenty Week Joe Update Ultra Sound Date Fundal Height At Umbil Quickening Date Ultra Sound Latest Weeks Gestation Final Joe Confirmed By Final Joe Confirmed Date Final Joe Date Ultra Sound Latest Days Gestation 0 0 Menstrual History Last Menstrual Date Menses Monthly On Bcp Conception Prior Menses Frequency Hcg Plus Date Menarche Onset Age Delivery Information Delivery Date Delivery Type Labor Anesthesia Weeks Gestation Incision Type Labor Labor Length Hrs Delivered By Post Complications Tubal Sterilization Discharge Date Comments 9 Discharge Information Feeding Method Contraceptive Method Maternal HG B and HCT Levels
--- OUTSIDE RECORDS SUMMARY | 2024-10-30 18:00 | XMS_ITS | CONTINUITY OF CARE DOCUMENT ---
Author Name lexigelaantonio putnam Address Unknown Organization [facility] Address [address] [place] [address] Phone [phone] Care Team Providers Care Supervisor [place] Name Role Phone Harrison MAGANA, Roopa Unavailable KRIS MAGANA, MADAN Unavailable INSURANCE PROVIDERS Payer name Policy type / Coverage type Marcin red green party ID [facility] Medicaid 1 [id number]
--- OUTSIDE RECORDS SUMMARY | 2024-10-30 18:00 | XMS_ITS | Clinical Summary ---
Author Organization [facility] Address [address] [place] [address] Care Team Providers Care Position Description Manager Name Role Phone Candy Gonzalez MD Primary Care Provider [phone] Source Comments [facility],non-owned Affiliates and Associated Physician Practices is amultiple site organization consisting of ambulatory clinics and hospital sitesin [place] and [place]. This disclosure is being madepursuant to the Care Everywhere program and may not contain all information available regarding this patient. Last updated 18.[facility] Allergies No known active allergies Medications Be aware that medications may not be up to date on this document. Always verify current medications with the patient. 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 Respiratory Rate 16 06/02/2018 3:41 PM CDT Oxygen Saturation 99% 06/02/2018 3:41 PM CDT Inhaled Oxygen Concentration - - Weight 49 kg (108 lb) 06/02/2018 3:41 PM CDT Height 169.5 cm (5' 6.75 ) 06/02/2018 3:41 PM CD T Body Mass Index 17.04 06/02/2018 3:41 PM CDT Plan of Treatment Health Maintenance Due Date Last Done Comments PAP SMEAR 1998 HIV SCREENING 2013 HPV VACCINE (1 - 3-dose series) 2013 HEPATITIS C SCREENING 02/11/2016 DTAP/TDAP/TD VACCINES (1 - Tdap) 2017 HEPATITIS B VACCINE (1 of 3 - 19+ 3-dose series) 2017 PNEUMOCOCCAL VACCINE (1 of 2 - PCV) 2017 COVID-19 VACCINE (1 - 2023-2 5 season) 2024 INFLUENZA VACCINE (#1) 2024 DEPRESSION SCREENING 08/10/2024 ZOSTER VACCINE (1 of 2) 02/16/2048 HIB VACCINE Aged Out No longer eligi ble based on patient's age to complete this topic MENINGOCOCCAL (Group B) VACC INE SHARED DECISION-MAKING Aged Out No longer eligibl e based on patient's age to complete this topic MENINGOCOCCAL GROUPS A/C/Y/W VACCINE Aged Out No longer eligible b ased on patient's age to complete this topic Care Teams Position Description Manager Relationship Specialty Start Date End Date Candy Gonzalez MD [address] [place] [address] PCP - General 04/14/19
[2024-10-30 18:14] VITALS: BP 140/86; PULSE 103
[2024-10-30 18:30] VITALS: BP 127/90; PULSE 88
--- NOTE | 2024-10-30 18:30 | PC.NURSE ---
Patient arrives to OB unit with complaints of vaginal spotting. Patient states she noticed a small spot of blood when she wiped after using the restroom earlier today. Patient states she has not noticed any blood since that one time. Patient states she fainted yesterday morning and vomited shortly after her syncopal episode. Patient states she has low iron this and takes an iron supplement, but no other complications. Patient denies any leaking of fluid or cramping. Patient has positive movement. Patient's abdomen is soft to palpation.
[2024-10-30 18:34] LABS: Add Urine Microscopic? YES; Appearance Urine Cloudy (Clear); Bacteria Urine Rare /hpf; Bilirubin Urine Negative (Negative); Blood Urine Negative (Negative); Color Urine Yellow (Yellow); Glucose Urine UA Negative (Negative); Ketones Urine Trace mg/dL (Negative); Leukocyte Esterase Ur 2+ LEU/UL (Negative); Nitrate Urine Negative (Negative); Non Pathogenic Casts 0-2; Protein Urine Trace mg/dL (Negative); RBC Urine 0-2 /hpf (0-2); Specific Grav Ur 1.024 (1.001-1.035); Squamous Epithelial Cell Urine Moderate /hpf (Few); WBC Urine 21-50 /hpf (0-3)
[2024-10-30 18:51] VITALS: BMI 20.7
[2024-10-30] MEDS: DEXTROSE 5%/LACTATED RINGERS 1,000 ML 999 ML IV CONT (18:57)
[2024-10-30 19:00] VITALS: BP 103/56; PULSE 80
[2024-10-30 19:00] LABS: Hematocrit 32.5 % (37.0-47.0); Hemoglobin 10.4 g/dL (12.0-15.0); Mean Corpuscular Volume 87.6 fl (80-100); Mean Platelet Volume 10.4 fl (7.4-10.4); Platelet Count Result 289 k/mm3 (150-375); Red Blood Count 3.71 M/mm3 (4.2-5.4); Red Cell Distribution Width 13.8 % (11.5-14.5); White Blood Count 15.5 K/mm3 (4.5-10.0)
[2024-10-30 19:12] LABS: Alanine Aminotransferase 20 U/L (6-35); Alkaline Phosphatase 89 U/L (38-126); Anion Gap 9 mmol/L (4-12); Aspartate Amino Transferase 23 U/L (14-36); Bilirubin,Total 0.5 mg/dL (0.2-1.3); Blood Urea Nitrogen 7 mg/dL (7-17); Calcium 8.9 mg/dL (8.4-10.2); Carbon Dioxide 24 mmol/L (22-30); Chloride 102 mmol/L (98-107); Estimated CRCL calculation 111 ml/min; Estimated Glomerular Filt Rate > 60; Glucose 89 mg/dL (65-110); Potassium 3.3 mmol/L (3.4-5.0); Sodium 135 mmol/L (137-145)
[2024-10-30 19:15] VITALS: BP 134/70; PULSE 63
[2024-10-30 19:30] VITALS: BP 127/78; PULSE 63
--- NOTE | 2024-10-30 19:41 | OBADM ---
This patient, Mao Limon, admitted to the OB room OB Post 116 for observation. Patient/family oriented to hospital policies and general routines including ID bracelet, bed and alarms, visiting hours, pain management, procedures, bathroom and other care routines, personal items, smoking policy, room service/diet, and visiting hours. Patient/Family are encouraged to report perceived risks to care and to ask questions if they do not understand what they are told or what they should do.
--- NOTE | 2024-10-31 18:28 | PM.OBTRLD ---
OB - Triage/Final Diagnosis Visit Information Date of evaluation: 10/30/24 Reason for evaluation: other (spotting) Comments/Additional reasons for admission: I have assessed the risk for this patient, Mao Limon, and determined that she would benefit from observation care. Evaluation Laboratory results: Laboratory Tests 10/30/24 10/30/24 18:18 18:53 WBC 15.5 H RBC 3.71 L Hgb 10.4 L Hct 32.5 L MCV 87.6 MCH 28.0 MCHC 32.0 RDW 13.8 Plt Count 289 MPV 10.4 Sodium 135 L Potassium 3.3 L Chloride 102 Carbon Dioxide 24 Anion Gap 9 BUN 7 Creatinine 0.62 L Estim Creat Clear Calc 111 Estimated GFR > 60 Glucose 89 Calcium 8.9 Total Bilirubin 0.5 AST 23 ALT 20 Alkaline Phosphatase 89 Total Protein 7.0 Albumin 4.0 Urine Color Yellow Urine Appearance Cloudy H Urine pH 7.0 Ur Specific Skippers 1.024 Urine Protein Trace Urine Glucose (UA) Negative Urine Ketones Trace H Ur Blood (Man) Negative Urine Nitrate Negative Urine Bilirubin Negative Urine Urobilinogen 1.0 Leukocyte Esterase Rfl 2+ H Urine RBC 0-2 Urine WBC 21-50 H Ur Squamous Epith Cells Moderate Urine Bacteria Rare Urine Casts 0-2 Vital signs: Vital Signs - 24 hr 10/30/24 18:30 10/30/24 19:00 10/30/24 19:15 Pulse Rate 88 80 63 Blood Pressure 127/90 103/56 L 134/70 10/30/24 19:30 Pulse Rate 63 Blood Pressure 127/78
== END 2024-10-30 19:47 | disposition home or self-care (01) ==
PROVIDERS: Advanced Practice Midwife; Admitting Provider Obstetrics & Gynecology; Visit Provider Obstetrics & Gynecology
DX: O26.853 Spotting complicating pregnancy, third trimester (principal); Z3A.32 32 weeks gestation of pregnancy
CPT/HCPCS: 36415; 80053; 81001; 85027; A9270; G0378; G0379; J7121

== ENCOUNTER 2024-11-29 17:50 | Inpatient (IN) | payer OTHER, SELFPAY ==
[2024-11-29] VITALS (12 sets, daily range): BP systolic 91–136; BP diastolic 48–106; PULSE 58–124; TEMP 36.3–36.6; BMI 22.4
--- NOTE | ~2024-11-29 | US_ITS ---
EXAMINATION: US OB BPP wo non-stress DATE: 11/29/2024 21:42 CDT INDICATION: 36 weeks gestation with fluid leak TECHNIQUE: Real-time transabdominal obstetric ultrasound. FINDINGS: There is a single intrauterine gestation in vertex presentation. The placenta is posterior without p lacenta previa. cardiac activity and movement is noted with a heart rate of 139 beats per minute. Biophysical profile: breathin of 2 movement: 2 of 2 tone: 2 of 2 Amniotic fluid pocket: 2 of 2 Total score: 8 of 8 Amniotic fluid index measures 19.1 IMPRESSION: 1. Single intrauterine gestation in vertex presentation. 2: Total biophysical profile score of 8 out of 8. Reviewed, dictated and finalized at location A.
--- OUTSIDE RECORDS SUMMARY | 2024-11-29 18:30 | XMS_ITS | Clinical Summary ---
Author Organization [facility] Address [address] [place] [address] Care Team Providers Care Tax Associate Name Role Phone Unavailable Primary Care Provider Unavailabl e Source Comments [facility],non-owned Affiliates and Associated Physician Practices is amultiple site organization consisting of ambulatory clinics and hospital sitesin [place], [place], [place] and [place]. This disclosure is being madepursuant to the Care Everywhere program and may not contain all information available regarding this patient. Last updated 18.[facility] Allergies No known active allergies Medications * This document contains information received from the source organization and may not represent a complete record from that organization. * Be aware that medications may not be up to date on this document. Alwaysverify current medications with the patient. 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 Respiratory Rate 16 06/02/2018 3:41 PM CDT [...] VACCINE (1 - 2023-2 5 season) 2024 DEPRESSION SCREENING 08/10/2024 INFLUENZA VACCINE (Season Ended) 2025 ZOSTER VACCINE (1 of 2) 02/16/2048 HIB VACCINE Aged Out No longer eligi ble based on patient's age to complete this topic MENINGOCOCCAL (Group B) VACC INE SHARED DECISION-MAKING Aged Out No longer eligibl e based on patient's age to complete this topic MENINGOCOCCAL GROUPS A/C/Y/W VACCINE Aged Out No longer eligible b ased on patient's age to complete this topic Insurance [facility] MEDICAID - OUT OF STATE [facility] * Guarantor: MAO WOODS Account Type Relation to Patient Date of Phone Billing Address Personal/Family [address] [place] [address] [facility] SELF PAY NO INSURANCE Member Subscriber Plan / Payer (Ef fective for All Dates) Name:Mao Woods Member ID:Not on file Relation to Subscriber:Not on file Name:MAO WOODS Subscriber ID:Not on file Address: [address] [place] [phone] Payer ID:Not on file Group ID:Not on file Type:Self Pay Address: [place], [place] * Guarantor: MAO WOODS Account Type Relation to Patient Date of Phone Billing Address Personal/Family [address] [place] [phone] [facility] SELF PAY NO INSURANCE Member Subscriber Plan / Payer (Ef fective for All Dates) Name:Mao Woods Member ID:Not on file Relation to Subscriber:Not on file Name:MAO WOODS Subscriber ID:Not on file Address: [address] [place] [phone] Payer ID:Not on file Group ID:Not on file Type:Self Pay Address: [place], [place] * Guarantor: MAO WOODS Account Type Relation to Patient Date of Phone Billing Address Personal/Family [address] [place] [address] [facility] SELF PAY NO INSURANCE Member Subscriber Plan / Payer (Ef fective for All Dates) Name:PgegyMao millan Babar Member ID:Not on file Relation to Subscriber:Not on file Name:MAO WOODS Subscriber ID:Not on file Address: [address] [place] [phone] Payer ID:Not on file Group ID:Not on file Type:Self Pay Address: [place], [place] Member Subscriber Plan / Payer (Ef fective 2015-Present) Name:PeggyRicardo millansuze Eckert Member ID:Not on file Relation to Subscriber:Child Name:DIANE WOODS Date of :1975 (Home) (Work) Address: [address] [place] [address] Payer ID:[id number] (NAIC) Group ID:Not on file Type:Bora/Dax Address: [facility] [address] [place] [address] ANTHEM Member Subscriber Plan / Payer (Ef fective 2015-Present) Name:PeggyRicardosuze Eckert Member ID:Not on file Relation to Subscriber:Child Name:MANINDER WOODS Date of :1980 (Home) [phone] (Work) Address: [address] [place] [address] Payer ID:[id number] (NAIC) Type:PPO Address: [facility] [id number] [place] [phone]
--- OUTSIDE RECORDS SUMMARY | 2024-11-29 18:30 | XMS_ITS | Data Portability ---
Author Organization [facility] [place] Address [address] [place] [address] [address] Assessment Encounter Date Assessment Date Assessment LastModified by Organization Details LastModified Time 11/04/2024 11/04/2024 Patient is ___weeks . Discussed plan. Not available 11/04/2024 11:55:04 11/17/2024 11/17/2024 Patient is ___weeks . Discussed plan. Not available 11/17/2024 14:33:35 11/24/2024 11/24/2024 Patient is ___weeks . Discussed plan. Not available 11/24/2024 12:10:42 Plan of Treatment Reminders Order Date Submit Date Provider Last Modified By Organization Details Last Modified Time Details Appointments OB ROUTINE 2024 10:00A Miguel DELGADO MD Not available Not available Not available INDUCTION 2024 05:00A Miguel DELGADO MD Not available Not available Not available Lab None recorded. Referral None recorded. Procedures None recorded. Surgeries None recorded. Imaging US, obstetric , follow-up 2024 025 [email or web address] [place], [address], [place], [address], 10/18/2024 22:06:14 Medication Orders pantopraz ole 40 mg tablet,de layed release 2024 025 [id number], [address], [place], [place], [id number], 10/18/2024 12:39:23 Patient TargetsNo targets recorded. Patient InstructionsNo instructions recorded. Reason for Referral None Reported. Results Created Date Observation Date Name Description Value Unit Range Abnormal Flag Note LastModifiedBy Organization Detail LastModifiedTime 10/04/1910/04/2024 HEMAT OCRIT (HCT) HCT 33.3 % (based on docume nted legal sex) 34.0-4 5.0 low Not Available [facility] (Lab) [address] [place], [address], 10/05/2024 19:11:29 10/04/19 25 10/04/2024 HEMOG LOBIN (HGB) HGB 10.4 g/dL (based on docume nted legal sex) 11.6-1 5.4 low Not Available [facility] (Lab) [address] [place], [address], 10/05/2024 19:11:29 10/04/19 25 10/04/2024 HIV 1/2 ANTIG EN/AN TIBOD Y, REFLE X CONFI RMATI ON HIV antigen/anti body Nonrea ctive nonrea ctive HIV-1 antig en and HIV-1 /HIV- 2 antib odies were not detec marylin. No labor atory evide nce of HIV infec tion. Not Available [facility] (Lab) [address] [place], [address], 10/05/2024 19:11:29 10/04/19 25 10/04/2024 GTT - GESTA PAULETTE L SCREE N, ACOG OB glucose, 1 hour screen 97 mg/dL 70-135 Not Available [facility] (Lab) [address] [place], [address], 10/05/2024 19:11:30 10/04/19 25 10/04/2024 RPR SCREE N, REFLE X TITER /CONF IRMAT ION RPR qualitative Nonrea ctive nonrea ctive Not Available [facility] (Lab) [address] [place], [address], 10/05/2024 19:11:30 11/25/19 25 11/24/2024 CULTU RE: GROUP B STREP SCREE N, REFLE X SUSCE PTIBI LITY result report SEE RESULT S BELOW Test: Cultu re: Group B Strep , Refle x Susce ptibi lity ([facility]/ [facility]/K H/V[facility] ) Speci men Sourc e: Vagin a/Rec anabella Speci men Type: Vagin al/Re ctal Speci men Date: 2024 1437 Resul t Date: 2024 1512 Resul t Statu s: Final resul t Abnor mal: No Resul ting Lab: [facility] [address] [facility] [address] [facility] [address] Tel: [phone] CULTU RE ----- ----- ----- --- No Group B strep isola marylin at 2 days (andrzej ctive broth enhan cemen t) Not Available [facility] (Lab) [address] [facility], [place], [address], 11/28/2024 16:16:26 10/19/19 25 10/18/2024 US, obste tric, follo w-up No observ ation record ed. [address], [place], [address], 11/03/2024 04:09:05 10/19/19 25 10/18/2024 US, obste tric, follo w-up No observ ation record ed. [email or web address] [place] [address], [place], [address], 10/18/2024 12:41:12 Result Notes None recorded. Problems Name Problem SNOMED Code Status Onset Date Resolution Date Notes Provider Name and Address Organization Details Recorded Time Abscess of vulva 01709144 Active 2015 Furuncle of vulva;Rec orded Elsewhere : No Locati on: [facility]: EHR Chron ic: N Practic e ID: [id number] Bill able Time: 09:00:00 AM Not Available [facility] 0 17:41:31 Depressiv e disorder 71713946 Active 2018 Depressio n;Recorde d Elsewhere : No Locati on: [facility]: EHR Chron ic: N Practic e ID: 0001 Bill able Time: 01:45:00 PM Not Available [facility] 0 17:41:31 Chlamydia l infection 726978529 Active 2015 Chlamydia l infection , unspecifi ed;Record ed Elsewhere : No Locati on: [facility]: EHR Chron ic: N Practic e ID: 0001 Bill able Time: 10:00:00 AM Not Available [facility] 0 17:41:32 43265021 Active 2023 Alanna Alvarado [facility], [facility] 4 18:06:16 Female steriliza tion Active Consideri ng PP tubal, discussed at 16 week visit, will need papers signed at 32 week visit NEEDS TUBAL CONSENT Leighton Delgado MD [address], [place], [address], [facility] 5 14:47:49 Acid reflux 376033358 Active Rxed - protonix Leighton Delgado MD [address], [place], [address], [facility] 5 12:42:54 Problem Notes None recorded. Procedures Surgical History Date Name Laterality Status Provider Name and Address Organization Details Recorded Time 4 Date of Last Pap Smear completed Alanna Alvarado [facility] 06/15/2024 18:04:43 4 DILATION & CURETTAGE (SURG) completed Arpan Luevano [facility] 02/19/2024 09:31:14 Imaging Results Imaging Date Name Status LastModified by Organiz ation Details LastModified Time 10/18/2024 US, obstetric, follow-up active [address]ITA [address], [place], [address], 11/03/2024 04:09:05 10/18/2024 US, obstetric, follow-up completed [email or web address] [place], [place], [address], 10/18/2024 12:41:12 Procedure Notes None recorded. Medical Equipment None Reported. Allergies No known drug allergies Medications Name Sig Start Date Stop Date Status Note LastModified by Organization Details LastModified Time cyclobenz aprine 10 mg tablet take 1 tablet by oral route 2 times every day 02/14 completed Prescrib ed Elsewher e: No Locat ion: [facility] odify By: shaq min DateTime : [...] pantopraz ole 40 mg tablet,de layed release TAKE 1 TABLET BY MOUTH EVERY DAY active Not Available Not Available No t Available Bactrim DS 800 mg-160 mg tablet take 1 tablet by oral route every 12 hours 07/14 completed Prescrib ed Elsewher e: No Locat ion: [facility] odify By: brien shipley DateTime : 04/23/20 16 10:00:00 AM Not Available Not Available Not Available Zithromax 500 mg tablet take 2 Tablet by oral route at one time 05/01 completed Prescrib ed Elsewher e: No Locat ion: [facility] odify By: doug sanchez DateTime : 04/30/20 16 02:40:09 PM Not Available Not Available Not Available Tums active Not Available Not Availa ble Not Available + DHA active Not Available Not Available Not Available Vitals Date Recorded Body height Body mass index (BMI) Body weight Systolic blood pressure Diastolic blood pressure Provider Name and Address Organization Details Last Updated DateTime 10/18/2024 167.64 cm 22 kg/m2 95529.56 g 107 mm[Hg] 73 mm[Hg] CALLY Gonzalez [facility] 12:30:20 Date Recorded Body weight Systolic blood pressure Diastolic blood pressure Provider Name and Address Organization Details Last Updated DateTime 11/04/2024 30721.9318 g 134 mm[Hg] 86 mm[Hg] Alannascott Alvarado [facility] 11/04/2024 12:00:10 Date Recorded Body height Body mass index (BMI) Body weight Systolic blood pressure Diastolic blood pressure Provider Name and Address Organization Details Last Updated DateTime 11/17/2024 167.64 cm 23.4 kg/m2 73146.89 g 128 mm[Hg] 79 mm[Hg] Alannascott Reeder [facility] 14:38:12 Date Recorded Body height Body mass index (BMI) Body weight Systolic blood pressure Diastolic blood pressure Provider Name and Address Organization Details Last Updated DateTime 11/24/2024 167.64 cm 23.2 kg/m2 60786.3 g 120 mm[Hg] 80 mm[Hg] [facility] 12:11:17 Social History Question Answer Notes LastModified by Organizat ion Details LastModified Time Tobacco Smoking Status Never Smoker Alannascott Reeder [facility], [...] Diagnosis ICD10 Code Diagnosis Note Hilary White [place] [address],[facility] [address] 2024 15:57:11 2024 16:58:53 Missed miscarriage 75780983 O02.1 Z3A.00 [id number] [place] [address] [address] 2024 16:08:46 02/16/2024 10:59:05 Missed miscarriage 39542156 O02.1 Z3A.00 this patient is a 23-year-ol d female with a missed miscarriag e. We have agreed to perform suction D&C. She understand s the procedure, it has been explained in detail.. She understand s the risks, benefits, and alternativ es. She has completed the informed consent process and is ready to proceed. [id number] Leighton Delgado MD [place] [address],[place] [address] 02/18/2024 13:52:16 02/18/2024 15:24:14 Missed miscarriage 42765316 O02.1 Z3A.00 this patient is a 23-year-ol d female with a missed miscarriag e. We have agreed to perform suction D&C. She understand s the procedure, it has been explained in detail.. She understand s the risks, benefits, and alternativ es. She has completed the informed consent process and is ready to proceed. [id number] Leighton Delgado MD [place] [address] [address] 02/25/2024 14:02:53 02/25/2024 15:14:45 Incomplete miscarriage 709815823 O03.4 this patient presents for postop follow-up. [...] follow-up for care in the near future. [id number] Leighton Delgado MD [place] [address],[place] [address] 02/25/2024 19:35:29 02/25/2024 19:36:30 [id number] [facility] [address],[place] [address] 05/09/2024 13:21:43 05/09/2024 14:03:14 Threatened miscarriage 26871421 O20.0 Z3A.01 [id number] [facility] [address],[place] [address] 05/18/2024 11:54:06 05/18/2024 12:21:32 [id number] Leighton Delgado MD [place] [address] [address] 05/18/2024 11:54:25 05/19/2024 09:29:49 screening 464356028 Z36.0 Genetic in vestigation procedure 80232668 Z31.430 Amenorrhea 32345185 N91. 2 this patient is a 24-year-ol [...] begin routine care at her next visit. [id number] [facility] [address] [address] 06/15/2024 17:32:40 06/16/2024 07:40:11 screening 201954597 Z36.82 Z3A.13 [id number] Leighton Delgado MD [place] [address],[place] [address] 06/15/2024 17:32:52 06/16/2024 12:09:41 Routine care 730771816 Z34.91 [id number] SPENCER ZAVALETA MD [place] [address],[place] [address] 07/18/2024 10:43:41 07/18/2024 12:26:56 Sterilization requested 089911891 Z30.2 - patient considerin g permanent sterilizat ion - discussed risks, benefits, and alternativ es at 17 weeks of bilateral salpingect rachid, including risks of bleeding, infection and injury to surroundin g organs. Also discussed alternativ e contracept alcides options.- tubal papers to be signed at 32 week vist Gestation period, 17 weeks 11268163 Z3A.17 - continue pNV [id number] [facility] [address],[place] [address] 08/16/2024 11:19:13 08/16/2024 12:48:56 screening for malformation 275872897 Z36.3 Z3A.21 [id number] SPENCER ZAVALETA MD [place] [address],[place] [address] 08/16/2024 11:19:31 08/16/2024 14:10:44 Routine care 924804130 Z34.82 [id number] [facility] [address],[place] [address] 09/14/2024 13:42:05 09/14/2024 14:34:47 screening 002813878 Z36.2 Z3A.25 [id number] Leighton Delgado MD [place] [address],[place] [address] 09/14/2024 13:42:29 09/14/2024 14:53:23 Routine care 228927227 Z34.91 [id number] Leighton Delgado MD [place] [address],[place] [address] 10/04/2024 11:06:35 10/04/2024 12:13:09 Routine care 832812500 Z34.91 [id number] Tana Caitlin [place] [address],[place] [address] 10/18/2024 11:49:01 10/18/2024 12:48:51 Uterine size for dates discrepancy 020377487 O26.849 Z3A.30 Gestation period, 30 weeks 83753642 Z3A.30 [id number] Leighton Delgado MD [place] [address],[place] [address] 10/18/2024 11:49:12 10/18/2024 12:49:38 Gastroesophageal reflux disease 596860496 K21.9 Routine an tenatal care 092222711 Z34.91 [id number] Leighton Delgado MD [place] [address],[place] [address] 11/04/2024 11:05:43 11/04/2024 13:00:09 Routine care 250077603 Z34.91 [id number] MD James Voss [address],[place] [address] 11/17/2024 13:54:32 11/17/2024 17:18:40 Routine care 195491533 Z34.91 [id number] Leighton Delgado MD [place] [address],[place] [address] 11/24/2024 11:23:46 11/24/2024 12:32:27 care status 791478422 Z34.80 Health Concerns Section Related Observation LastModified by Organization Detai ls LastModified Time None Recorded Concern Status LastModified by Organization Details LastModified Time None Recorded Advance Directives Directive None Recorded Payers Encounter Date Sequence Insurance Name Policy Number Policy Welch Covered Member ID Welch Member ID Guarantor Name 10/18/2024 1 [facility] (MEDICAID HMO) [id number] Mao Braxton [id number] Mao Braxton 10/18/2024 1 [facility] (MEDICAID HMO) [id number] Mao Braxton [id number] Mao Braxton 11/04/2024 1 [facility] (MEDICAID HMO) [id number] Mao Braxton [id number] Mao Braxton 11/17/2024 1 [facility] (MEDICAID HMO) [id number] Mao Braxton [id number] Mao Braxton 11/24/2024 1 [facility] (MEDICAID HMO) [id number] Mao Braxton [id number] Mao Braxton OBGyn Episode Ob Episode Information Episode Created Date Number of Fetuses Patient Bloodtype Patient rh Status Prepregnancy Weight lbs Domestic Partner Domestic Partner Phone Father Name Can Dryer Status 02/15/20 24 1 CLOSED Fetus Data First Name Last Name Admitted to NICU Weight (g) Sex Living Outcome Pediatric Complications Fetus ID Race Codes Race Delivery Type , Spontane ous 58862 Joe Calculation Initial Joe Date Initial Exam [...] Domestic Partner Domestic Partner Phone Father Name Can Dryer Status 02/15/20 24 1 CLOSED Fetus Data First Name Last Name Admitted to NICU Weight (g) Sex Living Outcome Pediatric Complications Fetus ID Race Codes Race Delivery Type , Spontane ous 50471 Joe Calculation Initial Joe Date Initial Exam [...] Domestic Partner Domestic Partner Phone Father Name Can Dryer Status 02/15/20 24 1 CLOSED Fetus Data First Name Last Name Admitted to NICU Weight (g) Sex Living Outcome Pediatric Complications Fetus ID Race Codes Race Delivery Type M Full Term 61642 Vaginal Delivery Joe Calculation Initial Joe Date [...] Domestic Partner Domestic Partner Phone Father Name Can Dryer Status 06/15/20 24 1 B Positive Gerald OPEN Fetus Data First Name Last Name Admitted to NICU Weight (g) Sex Living Outcome Pediatric Complications Fetus ID Race Codes Race Delivery Type [id number] Problems Problem Notes Problem Name Start Date End Date Resolution Snomed Code Not e Female sterilization 66529398 Considering PP tubal, discussed at 16 week visit, will need papers signed at 32 week visitNEEDS TUBAL CONSENT Acid reflux 161919972 Rxed - p rotonix Joe Calculation Initial [...] Weight in lbs Pre/Post Dialysis Refused Weight 118.773857255281 BP Diastolic BP Location Tested BP Systolic [...] Type Weight in lbs Pre/Post Dialysis Refused 124.970053304622 BP Diastolic BP Location Tested BP Systolic [...] Type Weight in lbs Pre/Post Dialysis Refused 130.121945429645 BP Diastolic BP Location Tested BP Systolic [...] Type Weight in lbs Pre/Post Dialysis Refused 135.64814997319 BP Diastolic BP Location Tested BP Systolic [...] Type Weight in lbs Pre/Post Dialysis Refused 196.428748719559 BP Diastolic BP Location Tested BP Systolic [...] Weight in lbs Pre/Post Dialysis Refused Weight 136.072359433145 BP Diastolic BP Location Tested BP Systolic BP Type 73 L arm 107 sitting Fetus Heart Rate Present A 145 Fetus Movement A Yes Comments pt complains of acid reflux and nausea - TREATED WITH PROTONIX Flowsheet Date 11/04/2024 Martinez Score Blood Edema Fundus Height Fundus Units Glucose Ketones Leukocytes Nitrite Labor Signs Protein Cervic Dilation Cervic Effacement Cervic Station 33 cm Type Weight in lbs Pre/Post Dialysis Refused 140.218105045434 BP Diastolic BP Location Tested BP Systolic BP Type 86 L arm 134 sitting Fetus Heart Rate Present A 148 Present Fetus Movement A Yes Comments no complaints, no problems, routine care, no contractions, no vaginal bleeding, no loss of fluid, no cramping Flowsheet Date 11/17/2024 Martinez Score Blood Edema Fundus Height Fundus Units Glucose Ketones Leukocytes Nitrite Labor Signs Protein Cervic Dilation Cervic Effacement Cervic Station Type Weight in lbs Pre/Post Dialysis Refused Weight 145.555168957968 BP Diastolic BP Location Tested BP Systolic BP Type 79 L arm 128 sitting Fetus Heart Rate Present A 142 Present Fetus Movement A Yes Comments no complaints, no problems, routine care, no contractions, no vaginal bleeding, no loss of fluid, no cramping Flowsheet Date 11/24/2024 Martinez Score Blood Edema Fundus Height Fundus Units Glucose Ketones Leukocytes Nitrite Labor Signs Protein Cervic Dilation Cervic Effacement Cervic Station 3cm 60% -2 Type Weight in lbs Pre/Post Dialysis Refused Weight 144.35333384591 BP Diastolic BP Location Tested BP Systolic BP Type 80 L arm 120 sitting Fetus Heart Rate Present A 138 Present Fetus Movement A Yes Comments no complaints, no problems, routine care, no contractions, no vaginal bleeding, no loss of fluid, no cramping Menstrual History Last Menstrual Date Menses Monthly [...] Domestic Partner Domestic Partner Phone Father Name Can Dryer Status 02/15/20 24 1 CLOSED Fetus Data First Name Last Name Admitted to NICU Weight (g) Sex Living Outcome Pediatric Complications Fetus ID Race Codes Race Delivery Type Full Term 03350 Vaginal Delivery Joe Calculation Initial Joe Date [...]
--- OUTSIDE RECORDS SUMMARY | 2024-11-29 18:30 | XMS_ITS | CONTINUITY OF CARE DOCUMENT ---
Author Name lexigelaantonio putnam Address Unknown Organization [facility] Address [address] [place] [address] Phone [phone] Care Team Providers Care Needle Loom Setter Name Role Phone Harrison MAGANA, Roopa Unavailable KRIS MAGANA, MADAN Unavailable [phone] INSURANCE PROVIDERS Payer name Policy type / Coverage type Marcin red constitution party ID [employer] Medicaid 1 [id number]
--- OUTSIDE RECORDS SUMMARY | 2024-11-29 19:06 | XMS_ITS | CONTINUITY OF CARE DOCUMENT ---
Author Name lexigelaantonio putnam Address Unknown Organization [facility] Address [address] [place] [address] Phone [phone] Care Team Providers Care Case Specialist Name Role Phone Harrison MAGANA, Roopa Unavailable KRIS MAGANA, MADAN Unavailable INSURANCE PROVIDERS Payer name Policy type / Coverage type Marcin red alliance party ID [facility] FAMILY [facility] Medicaid 1 [id number]
--- OUTSIDE RECORDS SUMMARY | 2024-11-29 19:06 | XMS_ITS | Clinical Summary ---
Author Organization [facility] Address [address] [place] [address] Care Team Providers Care In Store Marketing Associate Name Role Phone Unavailable Primary Care Provider Unavailabl e Source Comments [facility],non-owned Affiliates and Associated Physician Practices is amultiple site organization consisting of ambulatory clinics and hospital sitesin [place], [place], [place] and [place]. This disclosure is being madepursuant to the Care Everywhere program and may not contain all information available regarding this patient. 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 MEDICAID - OUT OF STATE [facility] * Guarantor: MAO WOODS Account Type Relation to Patient Date of Phone Billing Address Personal/Family [address] [place] [address] [facility] SELF PAY NO INSURANCE Member Subscriber Plan / Payer (Ef fective for All Dates) Name:Mao Woods Member ID:Not on file Relation to Subscriber:Not on file Name:MAO WOODS Subscriber ID:Not on file Address: [address] [place] [phone] Payer ID:Not on file Group ID:Not on file Type:Self Pay Address: [place], [place] * Guarantor: MAO WOODS Account Type Relation to Patient Date of Phone Billing Address Personal/Family [address] [place] [address] [facility] SELF PAY NO INSURANCE Member Subscriber Plan / Payer (Ef fective for All Dates) Name:Mao Woods Member ID:Not on file Relation to Subscriber:Not on file Name:MAO WOODS Subscriber ID:Not on file Address: [address] [place] [phone] Payer ID:Not on file Group ID:Not on file Type:Self Pay Address: [place], [place] * Guarantor: MAO WOODS Account Type Relation to Patient Date of Phone Billing Address Personal/Family [address] [place] [address] [facility] SELF PAY NO INSURANCE Member Subscriber Plan / Payer (Ef fective for All Dates) Name:PeggyMao millan Babar Member ID:Not on file Relation to Subscriber:Not on file Name:MAO WOODS Subscriber ID:Not on file Address: [address] [place] [phone] Payer ID:Not on file Group ID:Not on file Type:Self Pay Address: [place], [place] Member Subscriber Plan / Payer (Ef fective 2015-Present) Name:PeggyRicardo millansuze Eckert Member ID:Not on file Relation to Subscriber:Child Name:DIANE WOODS Date of :1975 (Home) (Work) Address: [address] [place] [address] Payer ID:[id number] (NAIC) Group ID:Not on file Type:Bora/Dax Address: [facility] [address] [place] [address] ANTHEM Member Subscriber Plan / Payer (Ef fective 2015-Present) Name:PeggyRicardosuze Eckert Member ID:Not on file Relation to Subscriber:Child Name:MANINDER WOODS Date of :1980 (Home) [phone] (Work) Address: [address] [place] [address] Payer ID:[id number] (NAIC) Type:PPO Address: [facility] [id number] [place] [phone]
[2024-11-29 19:09] LABS: Add Urine Microscopic? YES; Appearance Urine Clear (Clear); Bacteria Urine Rare /hpf; Bilirubin Urine Negative (Negative); Blood Urine Negative (Negative); Color Urine Yellow (Yellow); Glucose Urine UA Negative (Negative); Ketones Urine Negative (Negative); Leukocyte Esterase Ur 2+ LEU/UL (Negative); Nitrate Urine Negative (Negative); Non Pathogenic Casts 0-2; Protein Urine Negative (Negative); RBC Urine 0-2 /hpf (0-2); Specific Grav Ur 1.017 (1.001-1.035); Squamous Epithelial Cell Urine None Seen /hpf (Few); Urobilinogen Urine 0.2 mg/dL (<2.0); WBC Urine 21-50 /hpf (0-3); pH Urine 6.5 (5.0-9.0)
[2024-11-29] MEDS: LACTATED RINGERS 1,000 ML 999 ML IV CONT (19:17)
--- NOTE | 2024-11-29 19:22 | LDADM ---
This patient, Mao Limon, was admitted to Labor/Delivery/Recovery 108 on 11/29/24 at 17:50. Plans for labor, pain management and were discussed with patient. Patient/family oriented to hospital policies and general routines including ID bracelet, bed and alarms, visiting hours, pain management, procedures, bathroom and other care routines, personal items, smoking policy, room service/diet and guest tray routines, security routines, and visiting hours. Patient/Family are encouraged to report perceived risks to care and to ask questions if they do not understand what they are told or what they should do. See OBIX for further documentation.
[2024-11-29 19:28] LABS: Basophils Percent Auto 0.3 % (0.2-1.2); Eosinophils Absolute Auto 0.1 K/mm3 (0-0.3); Eosinophils Percent Auto 1.3 % (0-4.4); Hematocrit 34.4 % (37.0-47.0); Hemoglobin 10.6 g/dL (12.0-15.0); Immature Granulocyte Absolute 0.05 K/mm3 (0.00-0.031); Immature Granulocyte Percent A 0.5 % (0-0.5); Lymphocytes Percent Auto 31.5 % (18.3-44.2); Mean Corpuscular HGB Conc 30.8 g/dl (32-36); Mean Corpuscular Hemoglobin 26.5 pg (26-34); Mean Platelet Volume 10.5 fl (7.4-10.4); Monocytes Absolute Auto 0.7 K/mm3 (0.1-0.6); Monocytes Percent Auto 6.7 % (2.6-8.5); Neutrophils Absolute Auto 6.7 K/mm3 (1.3-6.7); Neutrophils Percent Auto 59.7 % (45.5-73.1); Platelet Count Result 347 k/mm3 (150-375); Red Cell Distribution Width 14.4 % (11.5-14.5); White Blood Count 11.1 K/mm3 (4.5-10.0)
[2024-11-29 20:22] LABS: HIV 1/2 Ab P24 Ag Result Negative (Negative)
[2024-11-29 20:28] LABS: Syphilis IgG/IgM Antibody Negative (Negative)
--- NOTE | 2024-11-29 20:43 | PC.NURSE ---
Ultrasound at bedside for ALICIA and BPP.
[2024-11-29] MEDS: LACTATED RINGERS 1,000 ML 125 ML IV CONT (23:01)
[2024-11-29] MEDS: AMPICILLIN 2 GM/NS 100 ML 2 GM/100 ML BAG IVPB (23:01)
[2024-11-30] VITALS (112 sets, daily range): BP systolic 79–143; BP diastolic 43–103; PULSE 50–187; RESP 18–24; TEMP 36.2–37.2; O2SAT 90–100
[2024-11-30] MEDS: AMPICILLIN 1 GM/NS 50 ML 1 GM/50 ML BAG IVPB ×3 (03:11→13:23)
--- NOTE | 2024-11-30 08:48 | P.PNAN_ITS ---
Anes - Initial Pre Proc Eval Procedure: labor epidural Date/Time: 11/30/24 08:48 Surgeon: Leighton Delgado MD Pre Op Diagnosis: labor pain Pre Op Diagnosis: Contractions Patient Data Age: 24 Gender: F Height: 1.7 m Weight: 65 kg Last Vital Signs Temp 36.2 C L 11/30/24 06:49 Pulse 50 L 11/30/24 05:00 BP 94/46 L 11/30/24 05:00 O2 Del Method Room Air 11/29/24 19:22 Allergies Allergy/AdvReac Type Severity Reaction Status Date / Time lavender (Lavandula Allergy Severe Other Verified 11/29/24 19:30 angustifolia) Home Medications ?Medication ?Instructions ?Recorded ?Confirmed ?Type famotidine 20 mg tablet (Pepcid AC) 20 mg PO DAILY acid reflux 10/30/24 11/29/24 History vit no.95-ferrous 1 tablet PO DAILY 10/30/24 11/29/24 History fumarate 28 mg-folic acid 800 mcg tablet () pantoprazole 40 mg tablet,delayed 40 mg PO Q12H 11/29/24 11/29/24 History release Laboratory Tests 11/29/24 11/29/24 19:00 19:22 WBC 11.1 H K/mm3 (4.5-10.0) RBC 4.00 L M/mm3 (4.2-5.4) Hgb 10.6 L g/dL (12.0-15.0) Hct 34.4 L % (37.0-47.0) MCV 86.0 fl (80-100) MCH 26.5 pg (26-34) MCHC 30.8 L g/dl (32-36) RDW 14.4 % (11.5-14.5) Plt Count 347 k/mm3 (150-375) MPV 10.5 H fl (7.4-10.4) Immature Gran % (Auto) 0.5 % (0-0.5) Neut % (Auto) 59.7 % (45.5-73.1) Lymph % (Auto) 31.5 % (18.3-44.2) [place] % (Auto) 6.7 % (2.6-8.5) Eos % (Auto) 1.3 % (0-4.4) Baso % (Auto) 0.3 % (0.2-1.2) Lymph # (Auto) 3.50 H K/mm3 (0.9-3.2) [place] # (Auto) 0.7 H K/mm3 (0.1-0.6) Eos # (Auto) 0.1 K/mm3 (0-0.3) Baso # (Auto) 0.0 K/mm3 (0.0-0.1) Abs Immat Gran (auto) 0.05 H K/mm3 (0.00-0.031) Absolute Neuts (auto) 6.7 K/mm3 (1.3-6.7) Absolute Nucleated RBC 0.000 K/mm3 (0.0-0.012) Nucleated RBC % 0.0 % (0.0-0.2) Urine Color Yellow (Yellow) Urine Appearance Clear (Clear) Urine pH 6.5 (5.0-9.0) Ur Specific Pace 1.017 (1.001-1.035) Urine Protein Negative mg/dL (Negative) Urine Glucose (UA) Negative mg/dL (Negative) Urine Ketones Negative mg/dL (Negative) Ur Blood (Man) Negative (Negative) Urine Nitrate Negative (Negative) Urine Bilirubin Negative (Negative) Urine Urobilinogen 0.2 mg/dL (<2.0) Leukocyte Esterase Rfl 2+ H STACI/UL (Negative) Urine RBC 0-2 /hpf (0-2) Urine WBC 21-50 H /hpf (0-3) Ur Squamous Epith Cells None seen /hpf (Few) Urine Bacteria Rare /hpf Urine Casts 0-2 Syphilis IgG/IgM Ab Negative (Negative) HIV 1&2 Ab/P24 Ag 4thGn Negative (Negative) Blood Type B Positive Antibody Screen Negative Patient hx anesthesia problems: none Family hx anesthesia problems: none Results Review: All pre-operative results and documents have been reviewed as part of the pre- operative evaluation. [facility] Past Medical History Medical History (Updated 07/02/20 @ 12:42 by Breanna Jane MD) Patient denies medical problems Surgical History Surgical History (Updated 06/20/20 @ 02:13 by Bree Luque MD) H/O neck surgery Social History Social History (Updated 06/20/20 @ 02:13 by Bree Luque MD) Smoking status: Former smoker Tobacco type: e-cigarettes/vaping Second hand tobacco smoke exposure: No Alcohol intake: current Substance use: never Substance use type: marijuana Other substance usage details: Daily Do You Feel Safe in your Home?: Yes Lack of Transportation: No Lack of Food: Never True Current Housing: I Have Housing Concerned About Future Housing: No Difficulty Paying Gas/Electric Bills: No Difficulty Paying for Meds: No Currently Unemployed: No Education: High School Diploma/GED Difficulty w/ Childcare or Family Care: No Living arrangements: with family Gender identity (if verbalized by the patient): Female Spiritual care concerns: No Anes - Eval Final PreProcedure Day of Procedure 11/30/24 08:48 Patient weight: normal ASA classification: II Anesthetic plan: proceed Anesthesia type and monitoring: regional epidural and standard monitoring Results Review: All pre-operative results and documents have been reviewed as part of the pre- operative evaluation. Informed Consent: The patient's anesthetic plan and its attendant risks and benefits were discussed with the patient/family/POA. Questions were solicited and answers provided to the satisfaction of the patient/family/POA.
[2024-11-30] MEDS: LACTATED RINGERS 1,000 ML 125 ML IV CONT (09:00)
[2024-11-30] MEDS: CALCIUM CARBONATE (TUMS) 500 MG (200 MG ELEMENTAL) (09:56)
[2024-11-30] MEDS: OXYTOCIN 30 UNITS/NS 500 ML 30 UNITS/500 ML BAG IV CONT (10:15)
--- NOTE | 2024-11-30 10:15 | WPDOBADMIT ---
Obstetrics - Admit Note Admission Note: record reviewed. No pertinent additions to the history and/or any subsequent changes in the physical findings that are not consistent with the expected course of the were found. Additions to the history and/or subsequent changes in the physical findings follow. PPROM, SVE /-2, AROM large amount of clear, amniotic fluid, anticipate vaginal delivery
[2024-11-30] MEDS: SODIUM CHLORIDE 0.9% IV 300 ML 600 ML I-UTERINE (13:20)
[2024-11-30] MEDS: FAMOTIDINE 20 MG/2 ML VIAL IV PUSH (13:32)
--- NOTE | 2024-11-30 14:13 | PM.OBPRVD ---
OB - Vaginal Delivery Note Procedure Delivery date: 11/30/24 Delivery augmentation: Rupture of Membranes and Pitocin Delivery monitor: External FHT and Internal Uterine Route of delivery: Episiotomy description: None Laceration Description: None Specimen: No Quantitative Blood Loss (ml): 100 Anesthesia type: Epidural Disposition: Floor Baby Date of : 11/30/24 Time of : 13:57 Gestational Age by Date: 34 gender: Female presentation: vertex position: Left Occiput Anterior Placenta delivery description: Spontaneous Cord Vessel Description: 3 Vessels, Nuchal Cord, Loose (x1) and Delayed Cord Clamping score one minute: 8 score five minutes: 9
[2024-11-30] MEDS: OXYTOCIN 30 UNITS/NS 500 ML 30 UNITS/500 ML BAG 125 UNITS IV CONT (14:35)
--- NOTE | 2024-11-30 17:19 | OBPPTRN ---
Patient transferred to post room #278 via wheelchair. Support person present. Oriented to unit, room, information board, rooming in, admission packet and security measures. Patient verbalizes understanding.
[2024-11-30] MEDS: IBUPROFEN 600 MG TABLET PO (17:44)
[2024-12-01 04:30] VITALS: BP 100/71; PULSE 71; RESP 16; TEMP 36.4; O2SAT 98
--- NOTE | 2024-12-01 04:43 | P.PNOB_ITS ---
OB - PN: Subj Subjective Date/time seen: 12/01/24 04:43 Interval history: pp day 1 doing well OB - PN: Obj Data Labs 11/29/24 19:22 OB - PN A/P Plan day: 1 Plan: routine care Time Spent With Patient Time: Total time spent is greater than 50% in coordination of care (as documented) at patient's floor/unit and/or counseling patient: Review of Systems 2 Review of Systems: All systems reviewed & are unremarkable except as noted in HPI and below Exam 2 Const: General: cooperative and healthy appearing Chest: Chest palpation & inspection: normal inspection of the chest Resp: Effort & Inspection: normal respiratory effort Back/Spine/Pelvis: Back: no CVA tenderness
[2024-12-01 05:18] LABS: Hematocrit 33.8 % (37.0-47.0); Hemoglobin 10.3 g/dL (12.0-15.0)
[2024-12-01] MEDS: DOCUSATE SODIUM 100 MG CAPSULE PO ×2 (05:20→16:25)
[2024-12-01] MEDS: IBUPROFEN 600 MG TABLET PO ×2 (05:20→16:25)
[2024-12-01 08:05] VITALS: BP 102/54; PULSE 51; RESP 16; TEMP 36.6; O2SAT 99
[2024-12-01] MEDS: MULTIVIT/MIN/PREN/FOL AC/IRON TABLET 1 TAB PO (08:46)
[2024-12-01] MEDS: CALCIUM CARBONATE (TUMS) 500 MG (200 MG ELEMENTAL) PO (08:47)
--- NOTE | 2024-12-01 09:11 | WPDANLDPN2 ---
Anes-Prog Note L&D Date/Time: 12/01/24 09:11 Comfortable throughout: labor and delivery Neuraxial method: epidural Epidural/Spinal procedure site: clean & non-tender Neuro status: Neuro function grossly intact. Cardiovascular status: normal Respiratory status: normal Airway patency: baseline Mental status: baseline Post-Op hydration status: normal Vital Signs: Last Vital Signs Temp 36.4 C 12/01/24 04:30 Pulse 71 12/01/24 04:30 Resp 16 12/01/24 04:30 BP 100/71 12/01/24 04:30 Pulse Ox 98 12/01/24 04:30 O2 Del Method Room Air 11/30/24 17:30 Pain score (VAS): 08/19 I/O: Intake & Output 11/30/24 12/01/24 12/01/24 23:59 07:59 15:59 Output Total 1095 Balance -1095 Post-procedural complaints: none Patient feedback: Patient satisfied with anesthetic care.
[2024-12-01 11:58] VITALS: BP 122/70; PULSE 69; RESP 18; TEMP 36.9; O2SAT 99
--- NOTE | 2024-12-01 16:02 | PC.NURSE ---
1530. Introductions were made, then consulted with patient to assess needs related to . Discussed with mother her plans to feed her and the experience so far. Mom reports she breastfed her last child for 12 months, she would like to breastfeed this baby. Mom reports she has been bottle feeding today bc she has been hurting but plans to start tomorrow or the next day. She reports she plans to combo feed this infant. We discussed milk production and the importance of protecting her milk supply with pumping. Mom agreed to pumping for today. mom also requested a nipple shield for pain she was having with latching. Encouraged mother to express any questions or concerns she has regarding feedings. Encouraged mom to call with infants next feeding so we can assess the babys latch and correct any issues. Nipple shield provided to mother due to mom with nipple pain and reddness on bilateral nipples. Reviewed good handwashing, cleaning the nipple shield and the appropriate way to apply and use as a tool. Discussed with mom the nipple shield precautions, possible complications associated with the risks and benefits. Reviewed practicing with a nipple shield, then without and how to protect the milk supply and production. Mom voiced understanding of the importance of hand expression, nipple stimulation and initiating a pumping schedule if continues to nurse with the shield. Breast pump provided due to moms preferernce to bottle feed today and continue to combo feed. Instructions given on cleaning, care, usage, that there should be no pain, pumping schedule for milk production, collection, and storage of human milk. Patient was assessed for correct placement, flange size, to pump for comfort and nipple stretching/stimulation for adequate milk production every 3 hours (8 times in 24 hours) 1-2 times at night. Parents are encouraged to record the pumping schedule on the feeding sheet.?Mother voiced understanding of the education shared along with mom/baby guide and the pump measurement, flange fit handout for additional resource information. Discussed with mom her need for using WIC, and she confirmed she would like a [place] referral to the [place] office before she goes home. Reviewed the blue feeding worksheet for required output and feeding at least 8-12 times every 24 hours. Resources provided for inpatient and outpatient services with the feeding sheet, mom/baby guide, and name/number written on the communication board. Mother voiced understanding of information and will call if there is a request for assistance. Reported to the Primary RN?
[2024-12-01] MEDS: ACETAMINOPHEN 325 MG TABLET 650 MG PO (18:50)
[2024-12-01 20:00] VITALS: BP 139/86; PULSE 54; RESP 15; TEMP 36.7; O2SAT 98
[2024-12-02] MEDS: IBUPROFEN 600 MG TABLET PO (05:10)
[2024-12-02 07:00] VITALS: BP 111/81; PULSE 46; RESP 16; TEMP 36.7; O2SAT 100
[2024-12-02] MEDS: ACETAMINOPHEN 325 MG TABLET 650 MG PO (07:06)
[2024-12-02] MEDS: DOCUSATE SODIUM 100 MG CAPSULE PO (07:07)
[2024-12-02] MEDS: BENZOCAINE 20% AER SPR (*SP) 56 GM CAN 1 SPRAY TOPICAL (07:07)
[2024-12-02] MEDS: WITCH HAZEL 40 PADS 1 PAD TOPICAL (07:07)
--- NOTE | 2024-12-02 07:44 | P.PNOB_ITS ---
OB - PN: Subj Subjective Date/time seen: 12/02/24 07:44 Interval history: pp day 2 doing well OB - PN: Obj Data Labs 12/01/24 04:54 OB - PN A/P Plan day: 2 Plan: routine care and discharge home Time Spent With Patient Time: Total time spent is greater than 50% in coordination of care (as documented) at patient's floor/unit and/or counseling patient: Review of Systems 2 Review of Systems: All systems reviewed & are unremarkable except as noted in HPI and below Exam 2 Const: General: cooperative, healthy appearing and comfortable Chest: Chest palpation & inspection: normal inspection of the chest Resp: Effort & Inspection: normal respiratory effort
--- NOTE | 2024-12-02 07:45 | P.DS_ITS ---
DS: Admitting Diagnosis Discharge Date 12/02/24 Admitting Diagnosis IOL DS: Discharge Diagnosis Discharge Diagnosis (1) Vaginal delivery: Code(s): O80 - Encounter for full-term uncomplicated delivery Status: Acute OB - DS: Summary OB Procedures : None OB Procedures Intrapartum: Spontaneous Vag Delivery OB Procedures: : None Peripartum Data Laceration Description: None Episiotomy description: None Time Spent with Patient Time attestation: Total time spent providing and/or coordinating discharge services: Discharge Plan Discharge Attending physician on discharge: Leighton Delgado Discharging Clinician: Salud Sims Patient Disposition: Home Activity: pelvic rest Diet: regular Patient Instructions: Antibiotic Form Patient Language: Divehi Stand Alone Forms: General Discharge Information Follow-up/Referrals: Salud Sims CNM [Certified Nurse Brazing Furnace Operator] - Discharge Medications: Continued famotidine [Pepcid AC] 20 mg tablet 20 mg PO DAILY PNV cmb#95-ferrous fumarate-FA [] 28 mg iron- 800 mcg tablet 1 tablet PO DAILY pantoprazole 40 mg tablet,delayed release (DR/EC) 40 mg PO Q12H Date of admission: 11/29/24 17:50 Primary Care Provider: PHYSICIAN,VIDEOGAME TESTER Admitting Provider: Leighton Delgado Attending physician on admission: Leighton Delgado Condition: Stable
--- NOTE | 2024-12-02 08:35 | PC.NURSE ---
Consulted with mother concerning needs and she shared her ability to independently latch infant optimally without pain. Mother is feeding appropriately for growth of and understands stimulating to eat if needed. Infant has had appropriate feedings in the last 24 hours meets the outcomes for weight, output, blood sugar and jaundice at this time. Reinforced understanding of milk production, transition of milk, signs of adequate intake, transition of stool, prevention/relief of engorgement, plugged ducts, mastitis, responsive watching for feeding cues, community resources ([facility] referral faxed), and when to call a provider using the resource of the feeding sheet along with the mom and baby guide. Mom has a breast pump at home. Mother voiced understanding of the information shared, is confident to continue effectively her infant at home, when to call for assistance, denies any additional assistance or education at this time. Reported to the Primary RN.
[2024-12-03 11:34] VITALS: BP 131/78; PULSE 56; RESP 18; TEMP 37; O2SAT 100
== END 2024-12-02 10:10 | disposition home or self-care (01) | DRG 560 ==
LOC: ANHLDR 19:04 → ANHOB2 11-30 17:41
PROVIDERS: Advanced Practice Midwife; Admitting Provider Obstetrics & Gynecology; Visit Provider Obstetrics & Gynecology
DX: O69.81X0 Labor and delivery complicated by cord around neck, without compression, not applicable or unspecified (principal); Z37.0 Single live birth; Z3A.36 36 weeks gestation of pregnancy
CPT/HCPCS: 36415; 76819; 81001; 85014; 85018; 85025; 86593; 86703; 86850; 86900; 86901; 87086; A9270; G0432; J0290; J2590; J2795; J7030; J7120

== ENCOUNTER 2025-02-22 01:38 | Day surgery (SDC) | payer OTHER, SELFPAY ==
[2025-02-16 13:16] VITALS: BMI 20.7
--- NOTE | 2025-02-16 13:22 | PC.NURSE ---
Report to the Outpatient Waiting Room, entrance under the green pavilion located off [facility], at time _0700 on date _02/22/25_. Planned Procedure Time: 09__.? Time changes happen often and if your time is changed the preop area will call you the afternoon before. - You and your visitor will be asked to self-screen and do not enter if you have any COVID symptoms. Please call surgeon if you need to reschedule. - A mask is optional within the hospital at this time. Patients may have clear liquids (water, carbonated beverages, clear teas, apple juice) until 3 hours prior to surgery with a maximum of 20 ounces. - No food from midnight until time of surgery and no smoking, or chewing tobacco (or any form of nicotine). No chewing gum, candy or mints. - Infants may have breast milk until 4 hours before surgery, infant formula 6 hours prior to surgery. - Children will be allowed to drink immediately following surgery.? If applicable, please bring a bottle or sippy cup to assist with drinking. Juice, water, soda, and popsicles are readily available.? For infants on formula, please bring formula the day of surgery.? Pacifiers are allowed. Take only the following medications with a SIP of water on the morning of surgery: _NONE DO NOT STOP ANY OF YOUR OTHER PRESCRIPTION MEDICATIONS PRIOR TO SURGERY EXCEPT THE FOLLOWING Hold all vitamins and supplements for 3 days per anesthesiologist. Medications to discontinue per physician Date to take last dose Please no make-up, nail icelandic, hairspray, perfume, deodorant, or body powder the day of surgery.? No jewelry (including any body piercings) or valuables the day of surgery, leave them at home.? Please take a shower or bath the night before, or the morning of, surgery with an antibacterial soap.? Wear comfortable, loose fitting clothing.? Children are encouraged to wear pajamas. - Jewelry must be removed prior to entering the operating room.? Rings and piercings that are not removed may be cut off. - The hospital will not accept responsibility for valuables.? - Please leave all valuables, including medications, at home the day of surgery. If you are going home after surgery, a licensed delivery driver must drive you home.? - NO public transportation without another adult if you receive anesthesia. - We recommend that an adult stay with you for 24 hours following discharge. - We also recommend that you do not drive, make important decision, drink alcoholic beverages, or take any drugs that were not prescribed by your health care provider for at least 24 hours after your discharge time. For Pediatric surgeries, we recommend two adults accompany the child home. Follow any additional instructions given to you from your surgeon. Telephone instructions given to PATIENT_and asked if any additional questions and then verbalized understanding. Patient advised to call surgeon office or pre surgery nurse liaison [phone] if any additional questions.
[2025-02-22] VITALS (7 sets, daily range): BP systolic 101–122; BP diastolic 48–98; PULSE 40–56; RESP 12–22; TEMP 36.4–36.6; O2SAT 98–100
--- OUTSIDE RECORDS SUMMARY | 2025-02-22 01:41 | XMS_ITS | Clinical Summary ---
Author Organization [facility] Address [address] [place] [address] Care Team Providers Care Holistic Pulser Name Role Phone Unavailable Primary Care Provider Unavailabl e Source Comments [facility],non-owned Affiliates and Associated Physician Practices is amultiple site organization consisting of ambulatory clinics and hospital sitesin [place], [place], [place]. This disclosure is being madepursuant to the Care Everywhere program and may not contain all information available regarding this patient. Last updated 18.[facility] Allergies No known active allergies Medications * [...] on file Legal Sex Female 5:40 AM EQUAL OPPORTUNITY REPRESENTATIVE Gender Identity Not on file Sexual Orientation Not on file Last Filed Vital Signs Vital Sign Reading Time Taken Comments Blood Pressure 108/64 06/02/2018 3:41 PM CDT Pulse 60 06/02/2018 3:41 PM CDT Temperature 36.3 C (97.3 F) 09/07/2020 1:04 PM EQUAL OPPORTUNITY REPRESENTATIVE Respiratory Rate 16 06/02/2018 3:41 PM CDT Oxygen Saturation 99% 06/02/2018 3:41 PM CDT Inhaled Oxygen Concentration - - Weight 49 kg (108 lb) 06/02/2018 3:41 PM CDT Height 169.5 cm (5' 6.75) 06/02/2018 3:41 PM CD T Body Mass Index 17.04 06/02/2018 3:41 PM CDT Plan of Treatment Health Maintenance Due Date Last Done Comments HIV SCREENING 2013 HEPATITIS C SCREENING 02/11/2016 DTAP/TDAP/TD VACCINES (1 - Tdap) 2017 HEPATITIS B VACCINE (1 of 3 - 19+ 3-dose series) 2017 PNEUMOCOCCAL VACCINE (1 of 2 - PCV) 2017 PAP SMEAR 2019 COVID-19 VACCINE (1 - 2023-2 5 season) 2024 DEPRESSION SCREENING 08/10/2024 HPV VACCINE (1 - 3-dose SCDM series) 2025 INFLUENZA VACCINE (#1) 2025 ZOSTER VACCINE (1 of 2) 02/16/2048 [...] age to complete this topic Insurance [facility] MEDICAID - OUT OF [facility] * Guarantor: MAO WOODS Account Type Relation to Patient Date of Phone Billing Address Personal/Family [address] [place] [address] [facility] SELF PAY NO INSURANCE Member Subscriber Plan / Payer (Ef fective for All Dates) Name:Mao Woods Member ID:Not on file Relation to Subscriber:Not on file Name:MOA WOODS Subscriber ID:Not on file Address: [address] [place] [phone] Payer ID:Not on file Group ID:Not on file Type:Self Pay Address: [place], [place] * Guarantor: MAO WOODS Account Type Relation to Patient Date of Phone Billing Address Personal/Family [address] [place] [phone] [facility] SELF PAY NO INSURANCE Member Subscriber Plan / Payer (Ef fective for All Dates) Name:Mao Woods Member ID:Not on file Relation to Subscriber:Not on file Name:MAO WOODS Subscriber ID:Not on file Address: [address] [place] [phone] Payer ID:Not on file Group ID:Not on file Type:Self Pay Address: [place], [place] * Guarantor: MAO WOODS Account Type Relation to Patient Date of Phone Billing Address Personal/Family [address] [place] [phone] [facility] SELF PAY NO INSURANCE Member Subscriber Plan / Payer (Ef fective for All Dates) Name:PeggyMao millan Babar Member ID:Not on file Relation to Subscriber:Not on file Name:MAO WOODS Subscriber ID:Not on file Address: [address] [place] [phone] Payer ID:Not on file Group ID:Not on file Type:Self Pay Address: [place], [place] Member Subscriber Plan / Payer (Ef fective 2015-Present) Name:PeggyRicardo millansuze Eckert Member ID:Not on file Relation to Subscriber:Child Name:DIANE WOODS Date of :1975 (Home) (Work) Address: [address] [place] [address] Payer ID:[id number] (NAIC) Group ID:Not on file Type:Bora/Dax Address: [facility] [address] [place] [address] ANTHEM Member Subscriber Plan / Payer (Ef fective 2015-Present) Name:PeggyRicardo millansuze Eckert Member ID:Not on file Relation to Subscriber:Child Name:MANINDER WOODS Date of :1980 (Home) [phone] (Work) Address: [address] [place] [address] Payer ID:[id number] (NAIC) Type:PPO Address: [facility] [id number] [place] [address]
--- OUTSIDE RECORDS SUMMARY | 2025-02-22 01:41 | XMS_ITS | Data Portability ---
Author Organization [facility] Address [address] [place] [address] [place] [address] Assessment Encounter Date Assessment Date Assessment LastModified [...] Organization Details Last Modified Time Details Appointments SURG Salpingec lisa 2024 09:00A Miguel DELGADO MD Not available Not available Not available SURG POST OP 2024 05:00P Miguel DELGADO MD Not available Not available Not available Lab None recorded. Referral None recorded. Procedures None recorded. Surgeries salpingec lisa, laparosco pic (SURG) 2024 025 [email or web address] [facility], [address], [place], [address], 01/25/2025 16:11:17 Imaging US, obstetric , follow-up 2024 025 [email or web address] [facility], [address], [address], [place], [address], 10/18/2024 22:06:14 Medication Orders Becky 0.35 mg tablet [address] [id number], [address], [place], [place], [id number], 01/25/2025 15:51:46 Patient TargetsNo targets recorded. Patient InstructionsNo instructions recorded. Reason for Referral None Reported. Results Created Date Observation Date Name Description Value Unit Range Abnormal Flag Note LastModifiedBy Organization Detail LastModifiedTime 10/04/1910/04/2024 HEMAT OCRIT (HCT) HCT 33.3 % (based on docume nted legal sex) 34.0-4 5.0 low Not Available [facility] (Lab) [address], [place], [address], 10/05/2024 19:11:29 10/04/19 25 10/04/2024 HEMOG LOBIN (HGB) HGB 10.4 g/dL (based on docume nted legal sex) 11.6-1 5.4 low Not Available [facility] (Lab) [address], [place], [address], 10/05/2024 19:11:29 10/04/19 25 10/04/2024 HIV 1/2 ANTIG EN/AN TIBOD Y, REFLE X CONFI RMATI ON HIV antigen/anti body Nonrea ctive nonrea ctive HIV-1 antig en and HIV-1 /HIV- 2 antib odies were not detec marylin. No labor atory evide nce of HIV infec tion. Not Available [facility] (Lab) [address], [place], [address], 10/05/2024 19:11:29 10/04/19 25 10/04/2024 GTT - GESTA PAULETTE L ANGELIQUEE N, ACOG OB glucose, 1 hour screen 97 mg/dL 70-135 Not Available [facility] (Lab) [address] [place], [address], 10/05/2024 19:11:30 10/04/19 25 10/04/2024 RPR SCREE N, REFLE X TITER /CONF IRMAT ION RPR qualitative Nonrea ctive nonrea ctive Not Available [facility] (Lab) [address] [facility], [place], [address], 10/05/2024 19:11:30 11/25/19 25 11/24/2024 CULTU RE: [...] t Abnor mal: No Resul ting Lab: [facility] [address] [facility] [address] Tel: CULTU RE ----- ----- ----- --- No Group B strep isola marylin at 2 days (andrzej ctive broth enhan cemen t) Not Available [facility] (Lab) [address] [facility], [place], [address], 11/28/2024 16:16:26 10/19/19 25 10/18/2024 US, obste tric, follo w-up No observ ation record ed. LAURTIA [address], [place], [address], 11/03/2024 04:09:05 10/19/19 25 10/18/2024 US, obste tric, follo w-up No observ ation record ed. [email or web address] [facility] [address], [place], [address], 10/18/2024 12:41:12 11/30/19 25 11/29/2024 US, obste tric, follo w-up No observ ation record ed. [email or web address] [address], [place], [address], 11/30/2024 16:55:12 11/30/19 25 11/29/2024 US, obste tric, bioph ysica l profi le No observ ation record ed. [email or web address], [place], [address], 11/30/2024 10:31:11 Result Notes None recorded. Problems Name Problem SNOMED Code Status Onset Date Resolution Date Notes Provider Name and Address Organization Details Recorded Time Abscess of vulva 12703189 Active 2015 Furuncle of vulva;Re corded Elsewher e: No Locat ion: [facility] S ource: EHR Risk Adjustment Specialist shayla: N Practi ce ID: 0001 Danilo lable Time: 09:00:00 AM Not Available [facility] 0 17:41:31 Depressi ve disorder 32722800 Active 2018 Depressi on;Recor ded Elsewher e: No Locat ion: [facility] S ource: EHR Risk Adjustment Specialist shayla: N Practi ce ID: 0001 Danilo lable Time: 01:45:00 PM Not Available [facility] 0 17:41:31 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 5 22:39:47 Female steriliz ation Completed Consider ing PP tubal, discusse d at 16 week visit, will need papers signed at 32 week visit NEEDS TUBAL CONSENT Leighton Delgado MD [address], [place], [address], [facility] 5 14:47:49 Acid reflux 676973377 Completed Rxed - protonix Leighton Delgado MD [address], [place], [address], [facility] 5 12:42:54 Problem Notes None recorded. Procedures Surgical History Date Name Laterality Status Provider Name and Address Organization Details Recorded Time 4 Date of Last Pap Smear completed Alanna Alvarado [facility] 06/15/2024 18:04:43 4 DILATION & CURETTAGE (SURG) completed Arpan Luevano [facility] 02/19/2024 09:31:14 Imaging Results None recorded. Procedure Notes None recorded. Medical Equipment None Reported. Allergies No known drug allergies Medications Name Sig Start Date Stop Date Status Note LastModified by Organization Details LastModified Time cyclobenz aprine 10 mg tablet take 1 tablet by oral route 2 times every day 02/14 completed Prescrib ed Elsewher e: No Locat ion: [facility] odify By: shaq min DateTime : 08/05/20 19 01:45:00 PM Not Available Not Available Not [...] Prescrib ed Elsewher e: No Locat ion: [facility] odify By: brien shipley DateTime : 04/23/20 16 10:00:00 AM Not Available Not Available Not Available Zithromax 500 mg tablet take 2 Tablet by oral route at one time 05/01 completed Prescrib shannan Guzman e: Elif Locat ion: [facility] humberto By: doug sanchez DateTime : 04/30/20 16 02:40:09 PM Not Available Not Available Not Available Becky 0.35 mg tablet Take 1 tablet every day by oral route. 2024 active Not Available Not Available Not Avai lable Tums active Not Available Not Availa ble Not Available + DHA active Not Available Not Available Not Available Vitals Date Recorded Body height Body mass index (BMI) Body weight Systolic And Diastolic Provider Name and Address Organization Details Last Updated DateTime 10/18/2024 167.64 cm 22 kg/m2 65522.56 g 107/73 mm[Hg] CALLY Lisa [facility] 10/18/2024 12:30:20 Date Recorded Body weight Systolic And Diastolic Provider Name and Address Organization Details Last Updated DateTime 11/04/2024 50637.9318 g 134/86 mm[Hg] Alanna Alvarado [facility] 11/04/2024 12:00:10 Date Recorded Body height Body mass index (BMI) Body weight Systolic And Diastolic Provider Name and Address Organization Details Last Updated DateTime 11/17/2024 167.64 cm 23.4 kg/m2 85099.89 g 128/79 mm[Hg] Alanna [facility] 11/17/2024 14:38:12 Date Recorded Body height Body mass index (BMI) Body weight Systolic And Diastolic Provider Name and Address Organization Details Last Updated DateTime 11/24/2024 167.64 cm 23.2 kg/m2 68474.3 g 120/80 mm[Hg] [facility] 11/24/2024 12:11:17 Date Recorded Body height Body mass index (BMI) Body weight Systolic And Diastolic Provider Name and Address Organization Details Last Updated DateTime 01/25/2025 167.64 cm 22.1 kg/m2 78731.15 g 120/78 mm[Hg] Alanna Alvarado [facility] 01/25/2025 15:37:32 Social History Question Answer Notes LastModified by Organizat ion Details LastModified Time Tobacco Smoking Status Never Smoker Alanna Alvarado null, [facility] 2024 17:39:29 Are You Blind Or Do You Have [...] Sunscreen Routinely? Yes Information not available 2024 Do You Have Difficulty Walking Or Climbing Stairs? No Information not available 2024 Sex: Unknown Functional Status Question Answer Note LastModified by Organizat ion Details LastModified Time Do you use any illicit or recreational drugs? No Information not available 2024 What is your level of alcohol consumption? None Information not available 2024 Are you able to walk? YESWOREST Information not available 2024 Are you able to care for yourself? Yes Information n ot available 2024 Do you have difficulty dressing [...] N Gynecological History Statement/Question Response Flow Moderate Date of LMP 03/15/2024 On BCP's at Conception? N Was last menstrual period normal N STIs/STDs N HPV Vaccine N Current Control Method Breastfeedi ng/LOCKE Are cycles usually normal Y Sexually Active? Y Menses Monthly Y Date of Last Pap Smear 05/18/2024 Sexual Problems? N Desired Control Method Sterilizati on LMP Definite Obstetrics History GPAL:G 5 P 2 1 2 3 Type Value Full Term 2 Spontaneous 2 Premature 1 Living 3 Total 5 Past Encounters Encounter ID Performer Location Encounter Start Date Encounter Closed Date Diagnosis/Indication Diagnosis SNOMED-CT Code Diagnosis ICD10 Code Diagnosis Note Leighton Delgado MD [facility] [address] [address] 2024 15:57:11 2024 16:58:53 Missed miscarriage 70455563 O02.1 Z3A.00 [id number] Leighton Delgado MD [facility] [address] [address] 2024 16:08:46 02/16/2024 10:59:05 Missed miscarriage 69645964 O02.1 Z3A.00 this patient is a 23-year-ol d female with a missed miscarriag e. We have agreed to perform suction D&C. She understand s the procedure, it has been explained in detail.. She understand s the risks, benefits, and alternativ es. She has completed the informed consent process and is ready to proceed. [id number] Leighton Delgado MD [facility] [address],[place] [address] 02/18/2024 13:52:16 02/18/2024 15:24:14 Missed miscarriage 00951922 O02.1 Z3A.00 this patient is a 23-year-ol d female with a missed miscarriag e. We have agreed to perform suction D&C. She understand s the procedure, it has been explained in detail.. She understand s the risks, benefits, and alternativ es. She has completed the informed consent process and is ready to proceed. [id number] Leighton Delgado MD [facility] [address],[place] [address] 02/25/2024 14:02:53 02/25/2024 15:14:45 Incomplete miscarriage 051563508 O03.4 this patient presents for postop follow-up. [...] the near future. [id number] Leighton Delgado MD [facility] [address],[place] [address] 02/25/2024 19:35:29 02/25/2024 19:36:30 [id number] Leighton Delgado MD [facility] [address],[place] [address] 05/09/2024 13:21:43 05/09/2024 14:03:14 Threatened miscarriage 63044990 O20.0 Z3A.01 [id number] Leighton Delgado MD [facility] [address] [address] 05/18/2024 11:54:06 05/18/2024 12:21:32 [id number] Leighton Delgado MD [facility] [address] [address] 05/18/2024 11:54:25 05/19/2024 09:29:49 screening 359474952 Z36.0 Genetic in vestigation procedure 24641179 Z31.430 Amenorrhea 87216817 N91. 2 this patient is a 24-year-ol [...] begin routine care at her next visit. [id number] Leighton Delgado MD [facility] [address] [address] 06/15/2024 17:32:40 06/16/2024 07:40:11 screening 379666974 Z36.82 Z3A.13 [id number] Leighton Delgado MD [facility] [address] [address] 06/15/2024 17:32:52 06/16/2024 12:09:41 Routine care 327178097 Z34.91 [id number] SPENCER ZAVALETA MD [facility] [address],[place] [address] 07/18/2024 10:43:41 07/18/2024 12:26:56 Sterilization requested 806734671 Z30.2 - patient considerin g permanent sterilizat ion - discussed risks, benefits, and alternativ es at 17 weeks of bilateral salpingect rachid, including risks of bleeding, infection and injury to surroundin g organs. Also discussed alternativ e contracept alcides options.- tubal papers to be signed at 32 week vist Gestation period, 17 weeks 10953045 Z3A.17 - continue pNV [id number] MD James Voss [address],[place] [address] 08/16/2024 11:19:13 08/16/2024 12:48:56 screening for malformation 464540980 Z36.3 Z3A.21 [id number] MD James OBRIEN [address],[place] [address] 08/16/2024 11:19:31 08/16/2024 14:10:44 Routine care 666422686 Z34.82 [id number] MD James Voss [address],[place] [address] 09/14/2024 13:42:05 09/14/2024 14:34:47 screening 727979087 Z36.2 Z3A.25 [id number] MD James Voss [address],[place] [address] 09/14/2024 13:42:29 09/14/2024 14:53:23 Routine care 714835660 Z34.91 [id number] MD James Voss [address],[place] [address] 10/04/2024 11:06:35 10/04/2024 12:13:09 Routine care 814818645 Z34.91 [id number] MD James Voss [address],[place] [address] 10/18/2024 11:49:01 10/18/2024 12:48:51 Uterine size for dates discrepancy 982375615 O26.849 Z3A.30 Gestation period, 30 weeks 02138138 Z3A.30 [id number] MD James Voss [address],[place] [address] 10/18/2024 11:49:12 10/18/2024 12:49:38 Gastroesophageal reflux disease 447204545 K21.9 Routine an tenatal care 978084223 Z34.91 [id number] Leighton Delgado MD [facility] [address],[place] [address] 11/04/2024 11:05:43 11/04/2024 13:00:09 Routine care 942076928 Z34.91 [id number] Leighton Delgado MD [facility] [address],[place] [address] 11/17/2024 13:54:32 11/17/2024 17:18:40 Routine care 387237831 Z34.91 [id number] Leighton Delgado MD [facility] [address],[place] [address] 11/24/2024 11:23:46 11/24/2024 12:32:27 care status 732470520 Z34.80 [id number] Leighton Delgado MD [facility] [address],[place] [address] 01/25/2025 14:52:57 01/25/2025 16:00:22 Sterilization education 642345698 Z30.09 this patient is a 24-year-ol d female who presents for care. Her baby is doing well. The baby is breastfeed ing. Mother is doing well. Her mood is good. She is no longer bleeding. They have had intercours e. They are going to use a condom or abstinence until salpingect rachid is performed. The procedure was described to the patient. She understand s. The patient understand s the procedure. The procedure was described to the patient in great detail. the patient also understand s the risks. The risks were also explained in detail. She understand s that injuries May occur during surgery. She understand s these injuries can result in hospitaliz ation, more surgery, and severe illness. She understand s there is risk of hemorrhage and infection. Initial pr escription of oral contraception 712892443 Z30.011 care status 24 0319050 Z39.2 Health Concerns Section Related Observation LastModified by Organization Detai ls LastModified Time None Recorded Concern Status LastModified by Organization Details LastModified Time None Recorded Advance Directives Directive None Recorded Payers Insurance Date Sequence Insurance Name Policy Number Policy Welch Covered Member ID Welch Member ID Guarantor Name 02/19/2025 1 [facility] (MEDICAID HMO) [id number] [facility] [id number] Mao Braxton Notes Date Note Type Note Provider Name and Address Organization Details Recorded Time 01/25/2025 text/html this patient is a 24-year-old female who presents for care. Her baby is doing well. The baby is . Mother is doing well. Her mood is good. She is no longer bleeding. They have had intercourse. They are going to use a condom or abstinence until salpingectomy is performed. The procedure was described to the patient. She understands. The patient understands the procedure. The procedure was described to the patient in great detail. the patient also understands the risks. The risks were also explained in detail. She understands that injuries May occur during surgery. She understands these injuries can result in hospitalization, more surgery, and severe illness. She understands there is risk of hemorrhage and infection. Anabella wiggins, [facility] 01/25/2025 17:59:56 OBGyn Episode Ob Episode Information Episode Created Date Number of Fetuses Patient Bloodtype Patient rh Status Prepregnancy Weight lbs Domestic Partner Domestic Partner Phone Father Name Liquor Store Manager Status 02/15/20 24 1 CLOSED Fetus Data First Name Last Name Admitted to NICU Weight (g) Sex Living Outcome Pediatric Complications Fetus ID Race Codes Race Delivery Type , Spontane ous [phone] Joe Calculation Initial Joe Date Initial Exam [...] Domestic Partner Domestic Partner Phone Father Name Liquor Store Manager Status 02/15/20 24 1 CLOSED Fetus Data First Name Last Name Admitted to NICU Weight (g) Sex Living Outcome Pediatric Complications Fetus ID Race Codes Race Delivery Type , Spontane ous 76449 Joe Calculation Initial Joe Date Initial Exam [...] Domestic Partner Domestic Partner Phone Father Name Liquor Store Manager Status 02/15/20 24 1 CLOSED Fetus Data First Name Last Name Admitted to NICU Weight (g) Sex Living Outcome Pediatric Complications Fetus ID Race Codes Race Delivery Type M Full Term [id number] Vaginal Delivery Joe Calculation Initial Joe Date [...] Domestic Partner Domestic Partner Phone Father Name Liquor Store Manager Status 06/15/20 24 1 B Positive Gerald CLOSED Fetus Data First Name Last Name Admitted to NICU Weight (g) Sex Living Outcome Pediatric Complications Fetus ID Race Codes Race Delivery Type 3090.09 55 F true Prematur e 63650 Vaginal Delivery Problems Problem Notes Problem Name Start Date End Date Resolution Snomed Code Not e Female sterilization 62661404 Considering PP tubal, discussed at 16 week visit, will need papers signed at 32 week visitNEEDS TUBAL CONSENT Acid reflux 477164536 Rxed - p rotonix Joe Calculation Initial [...] Gestation 0 [email or web address] 06/15/2024 12/25/19 25 0 Pre- Flowsheet Flowsheet Date 06/15/2024 Martinez Score Blood Edema Fundus Height Fundus Units Glucose Ketones Leukocytes Nitrite Labor Signs Protein Cervic Dilation Cervic Effacement Cervic Station Type Weight in lbs Pre/Post Dialysis Refused Weight 118.123438898186 BP Diastolic BP Location Tested BP Systolic [...] Type Weight in lbs Pre/Post Dialysis Refused 124.693948785889 BP Diastolic BP Location Tested BP Systolic [...] Type Weight in lbs Pre/Post Dialysis Refused 130.205866544898 BP Diastolic BP Location Tested BP Systolic [...] Type Weight in lbs Pre/Post Dialysis Refused 135.76057234237 BP Diastolic BP Location Tested BP Systolic [...] Type Weight in lbs Pre/Post Dialysis Refused 196.273882530336 BP Diastolic BP Location Tested BP Systolic [...] Weight in lbs Pre/Post Dialysis Refused Weight 136.066943803924 BP Diastolic BP Location Tested BP Systolic [...] Type Weight in lbs Pre/Post Dialysis Refused 140.255302041977 BP Diastolic BP Location Tested BP Systolic [...] Weight in lbs Pre/Post Dialysis Refused Weight 145.338573374805 BP Diastolic BP Location Tested BP Systolic [...] Weight in lbs Pre/Post Dialysis Refused Weight 144.63855283779 BP Diastolic BP Location Tested BP Systolic [...] Post Complications Tubal Sterilization Discharge Date Comments 5 Augmen marylin 36.4 true 3.47 Salud SimsM GBS unknown Discharge Information Feeding Method Contraceptive Method Maternal HG B and HCT Levels Ob Episode Information Episode Created Date Number of Fetuses Patient Bloodtype Patient rh Status Prepregnancy Weight lbs Domestic Partner Domestic Partner Phone Father Name Liquor Store Manager Status 02/15/20 24 1 CLOSED Fetus Data First Name Last Name Admitted to NICU Weight (g) Sex Living Outcome Pediatric Complications Fetus ID Race Codes Race Delivery Type Full Term [id number] Vaginal Delivery Joe Calculation Initial Joe Date [...]
[2025-02-22 07:20] LABS: BEDSIDEPREGUCG Negative (Negative)
[2025-02-22] MEDS: LACTATED RINGERS 1,000 ML 30 ML IV CONT ×2 (07:35→10:21)
[2025-02-22] MEDS: ACETAMINOPHEN 500 MG TABLET 1000 MG PO (07:40)
[2025-02-22] MEDS: KETOROLAC 15 MG/ML VIAL (*BKC) IV PUSH (07:40)
--- NOTE | 2025-02-22 07:45 | P.PNAN_ITS ---
Anes - Initial Pre Proc Eval Procedure: Operation Date: 02/22/25 09:00 Proposed Procedures p Laparoscopic Bilateral Salpingectomy - Leighton Delgado MD Date/Time: 02/22/25 07:45 Surgeon: Leighton Delgado MD Pre Op Diagnosis: desires sterilization Patient Data Age: 25 Gender: F Height: 1.7 m Weight: 61.8 kg Last Vital Signs Temp 97.8 F 02/22/25 07:05 Pulse 56 L 02/22/25 07:05 Resp 16 02/22/25 07:05 BP 116/98 H 02/22/25 07:05 Pulse Ox 99 02/22/25 07:05 O2 Del Method Room Air 02/22/25 07:05 Allergies Allergy/AdvReac Type Severity Reaction Status Date / Time lavender (Lavandula Allergy Severe Other Verified 02/16/25 13:15 angustifolia) Home Medications ?Medication ?Instructions ?Recorded ?Confirmed ?Type No Home Medications 02/16/25 02/16/25 History Laboratory Tests 02/22/25 07:17 POC Urine HCG, Qual Negative (Negative) Patient hx anesthesia problems: none Family hx anesthesia problems: none Results Review: All pre-operative results and documents have been reviewed as part of the pre- operative evaluation. [facility] Past Medical History Medical History (Updated 12/02/24 @ 07:45 by Salud Sims CNM) Patient denies medical problems Surgical History Surgical History (Updated 06/20/20 @ 02:13 by Bree Luque MD) H/O neck surgery Social History Social History (Updated 06/20/20 @ 02:13 by Bree Luque MD) Smoking status: Former smoker Tobacco type: e-cigarettes/vaping Second hand tobacco smoke exposure: No Additional smoking assessment comments: DAILY 1 MONTH Alcohol intake: current Alcohol use details: 1 PER MONTH Substance use: never Substance use type: marijuana Other substance usage details: Daily Do You Feel Safe in your Home?: Yes Lack of Transportation: No Lack of Food: Never True Current Housing: I Have Housing Concerned About Future Housing: No Difficulty Paying Gas/Electric Bills: No Difficulty Paying for Meds: No Currently Unemployed: No Education: High School Diploma/GED Difficulty w/ Childcare or Family Care: No Living arrangements: with family Gender identity (if verbalized by the patient): Female Spiritual care concerns: No Anes - Eval Final PreProcedure Day of Procedure 02/22/25 07:45 Patient weight: normal Heart: regular rate and rhythm Lungs: clear to auscultation Airway: Mallampati scale class II Neurological: alert and oriented Last oral intake: >/= 8 hours ASA classification: II Emergent: no Anesthetic plan: proceed Anesthesia type and monitoring: general ETT and standard monitoring Results Review: All pre-operative results and documents have been reviewed as part of the pre- operative evaluation. Informed Consent: The patient's anesthetic plan and its attendant risks and benefits were discussed with the patient/family/POA. Questions were solicited and answers provided to the satisfaction of the patient/family/POA.
--- NOTE | 2025-02-22 09:04 | PM.IMHP ---
H&P: HPI History of Present Illness Date/Time: 02/22/25 09:04 Chief Complaint: Unwanted fertility Narrative: This patient is a 25-year-old female with unwanted fertility. We have agreed to perform laparoscopic bilateral salpingectomy. She understands the risks, benefits, and alternatives. She has completed the informed consent process and is ready to proceed. The patient understands the details of the procedure. The procedure has been explained in detail. She understands the risks. She understands that injuries may occur that result in hospitalization, more surgery, and severe illness. She understands risk of hemorrhage and infection. She denies any chest pain or shortness of breath. She denies any nausea, vomiting, fever, chills. Review of Systems Review of Systems: All systems reviewed & are unremarkable except as noted in HPI and below Constitutional: Constitutional: Denies chills, Denies fatigue, Denies fever(s) and Denies weakness Eyes: Eyes: Denies blurry vision, Denies change in vision, Denies loss of peripheral vision, Denies loss of vision, Denies other visual disturbances and Denies eye pain ENT: Denies vertigo, Denies dizziness, Denies hearing loss, Denies mouth pain, Denies nasal obstruction, Denies neck mass and Denies neck pain Cardiovascular: Cardiovascular: Denies chest pain, Denies diaphoresis, Denies syncope, Denies leg edema and Denies dyspnea Respiratory: Respiratory: Denies chest congestion, Denies cough, Denies hemoptysis, Denies dyspnea and Denies wheezing Gastrointestinal: Gastrointestinal: Denies abdominal pain, Denies constipation, Denies diarrhea, Denies nausea and Denies vomiting Genitourinary: Genitourinary: Denies hematuria, Denies change in libido, Denies nocturia, Denies genital lesions, Denies flank pain and Denies urinary urgency Musculoskeletal: Musculoskeletal: Denies abnormal gait, Denies back pain, Denies myalgias, Denies arthralgias, Denies joint swelling, Denies muscle weakness and Denies neck pain Integumentary/Breasts: Skin/Breast: Denies swelling, Denies breast pain, Denies breast mass, Denies dry skin, Denies nipple discharge, Denies unusual bruising and Denies jaundice Neurologic: Denies Neuro-related abnormal movements, Denies Abnormal speech present, Denies abnormal gait, Denies behavioral changes, Denies confusion, Denies vertigo, Denies dizziness, Denies syncope, Denies loss of vision, Denies memory loss, Denies convulsions and Denies weakness Psychiatric: Psychiatric: Denies abnormal sleep pattern, Denies behavioral changes, Denies change in libido, Denies confusion, Denies depression, Denies anhedonia and Denies memory loss Endocrine: Endocrine: Reports no additional endocrine complaints, Denies change in libido and Denies fatigue Hematologic/Lymphatic: Hematologic/Lymphatic: Reports no additional hematologic/lymphatic complaints Allergic/Immunologic: Allergic/Immunologic: Reports no additional allergic/immunologic complaints and Denies wheezing PMFSH Past Medical History Medical History (Updated 02/22/25 @ 09:08 by Leighton Delgado MD) Patient denies medical problems Surgical History Surgical History (Updated 06/20/20 @ 02:13 by Bree Luque MD) H/O neck surgery Social History Social History (Updated 06/20/20 @ 02:13 by Bree Luque MD) Smoking status: Former smoker Tobacco type: e-cigarettes/vaping Second hand tobacco smoke exposure: No Additional smoking assessment comments: DAILY 1 MONTH Alcohol intake: current Alcohol use details: 1 PER MONTH Substance use: never Substance use type: marijuana Other substance usage details: Daily Do You Feel Safe in your Home?: Yes Lack of Transportation: No Lack of Food: Never True Current Housing: I Have Housing Concerned About Future Housing: No Difficulty Paying Gas/Electric Bills: No Difficulty Paying for Meds: No Currently Unemployed: No Education: High School Diploma/GED Difficulty w/ Childcare or Family Care: No Living arrangements: with family Gender identity (if verbalized by the patient): Female Spiritual care concerns: No Meds Home Medications and Allergies Home Medications ?Medication ?Instructions ?Recorded ?Confirmed ?Type No Home Medications 02/16/25 02/16/25 History Allergies Allergy/AdvReac Type Severity Reaction Status Date / Time lavender (Lavandula Allergy Severe Other Verified 02/16/25 13:15 angustifolia) Vital Signs Vital Signs - 24 hr 02/22/25 07:05 Temperature 97.8 F Pulse Rate 56 L Respiratory Rate 16 Blood Pressure 116/98 H Pulse Oximetry 99 Oxygen Delivery Room Air Exam Const: General: cooperative, healthy appearing, comfortable and no acute distress Orientation/consciousness: oriented to person, oriented to place and oriented to time HENMT: Head: normal to inspection Ears: external ears normal Face/Nose/Sinus: Normal external nose present and normal facial exam Face and sinus: normal facial exam Eyes: General: appearance normal, both eyes and all related structures Neck: Neck: normal visual inspection, trachea midline and supple Resp: Auscultation: clear to auscultation bilaterally, no crackles, no rales, no rhonchi and no wheezes Cardio: Rate: regular rate Rhythm: regular rhythm Heart sounds: no click, no murmurs and no rubs GI: GI Palp: No abdominal tenderness, No Soft to palpation, No Tenderness to palpation present (GI) and No Palpable mass present Auscultation: normal bowel sounds Skin: General skin exam: normal color and no rashes or lesions noted Neuro: General: oriented to person, oriented to place and oriented to time Extrem: General: normal to inspection, no joint enlargement, no clubbing, cyanosis or edema, no pedal edema and no calf tenderness Psych: Appearance: grossly normal Mental Status: mental status grossly normal Speech and movement: Normal speech and movement present Assessment and Plan Assessment and plan (1) Unwanted fertility: Code(s): Z30.09 - Encounter for other general counseling and advice on contraception Status: Acute Plan This patient is a 25-year-old female with unwanted fertility. We have agreed to perform laparoscopic bilateral salpingectomy. She understands the risks, benefits, and alternatives. She has completed the informed consent process and is ready to proceed.
--- NOTE | 2025-02-22 09:08 | WPDHPUPDATE1 ---
History and Physical Update Update Date/Time: 02/22/25 09:08 History and Physical has been reviewed, including an updated exam of the patient. There are NO changes in the patient's condition. Risks, benefits, and alternatives have been discussed and questions answered. Patient agrees to proceed with procedure.
--- NOTE | 2025-02-22 09:49 | S_PTH ---
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
--- NOTE | 2025-02-22 10:17 | P.OP_ITS ---
Procedure Note - Detailed Date of Procedure 02/22/25 Pre-op Diagnosis desires sterilization Post-op Diagnosis Same Procedure Performed Laparoscopic bilateral salpingectomy Surgeon Leighton Delgado MD Anesthesia General Indications Unwanted fertility Findings Normal pelvic anatomy Description of Procedure The patient was taken the operating room. She was prepped and draped in the dorsal lithotomy position after induction of general anesthesia. A 5 mm skin incision was made in the left upper quadrant of the abdominal skin. A 5 mm trocar was inserted the intra-abdominal cavity under direct visualization of the scope. Pneumoperitoneum was achieved. A 5 mm trocar was inserted in the left lower quadrant identical fashion. A 5 mm infraumbilical trocar was inserted in identical fashion as well. The bilateral fallopian tubes were removed. This was done by using a LigaSure cautery. The mesosalpinx adjacent to the tube was cauterized transected with LigaSure. This was initiated in the area the ovary and in a stepwise fashion moved medially to the area of the cornu of the uterus. Once there the fallopian tube was cauterized and transected. This was done in identical fashion on each side. The fallopian tubes were taken out through the left lower quadrant trocar site. The pneumoperitoneum was reduced. The trocars removed. The skin was closed with subcuticular 4 Monocryl and covered with D ermabond. She was taken to cover stable condition. Sponge lap and needle counts were correct x2. Estimated Blood Loss 5 Drains No Packing No Pathology Yes Complications No immediate complications Condition Stable Disposition PACU
== END 2025-02-22 11:48 | disposition home or self-care (01) ==
PROVIDERS: Visit Provider Obstetrics & Gynecology
PROC: (CPT 49320; principal; 2025-02-22 09:00)
DX: Z30.2 Encounter for sterilization (principal); G89.18 Other acute postprocedural pain; F12.90 Cannabis use, unspecified, uncomplicated; Z98.1 Arthrodesis status; Z87.891 Personal history of nicotine dependence
CPT/HCPCS: 58661; 88302; A9270; J1100; J1596; J1885; J2003; J2250; J2405; J2704; J3010; J7120